=== PATIENT | male | born 1955 | race Caucasian/White ===

== ENCOUNTER 2017-05-13 09:28 | Observation (INO) ==
[2017-05-13] MEDS ORDERED: cefTRIAXone 1,000 MG in Water for inj. (sterile) 10 ML IVP ONE (09:42)
[2017-05-13] MEDS ORDERED: methylPREDNISolone 125 MG/2 ML VIAL IVP ONE (09:42)
[2017-05-13] MEDS ORDERED: Levalbuterol Neb 1.25 MG/3 ML IH ONE (09:44)
--- NOTE | 2017-05-13 09:48 | Emergency Department Note ---
Disposition Clinical Impression: Acute exacerbation of chronic obstructive airways disease Disposition: Admitted As Inpatient Condition: Fair Referrals: Franklyn Chou MD [Primary Care Provider] - Forms: ED Satisfaction Letter SOB HPI - General Chief Complaint: ED Shortness of Breath/Dyspnea Stated Complaint: breathing problem Time Seen by Provider: 05/13/17 09:34 Source: patient, family Mode of arrival: private vehicle Limitations: no limitations Nursing Notes Reviewed: Yes Vital Signs Reviewed: Yes - History of Present Illness 61-year-old male presents for evaluation shortness of breath. Patient states over the last 3 days he has had sinus congestion and nonproductive cough. He has been using his oxygen on a continuous basis which he normally only uses on an as-needed basis. Patient has known history of COPD and uses nebulizers and oxygen on an as-needed basis at home. He does not require BiPAP or CPAP. He has never had endotracheal intubation. Patient states no chest pain. He denies any nausea vomiting. He states the leg swelling. - Related Data Home Medications Medication Instructions Recorded Confirmed Ipratropium/Albuterol Sulfate 1 puff IH QID 07/23/15 05/13/17 [Combivent Respimat Inhal [place]] Losartan Potassium [Cozaar] 50 mg PO DAILY 07/23/15 05/13/17 Budesonide/Formoterol 160/4.5 2 puff IH BIDR 01/20/17 05/13/17 [Symbicort 160/4.5] Folic Acid 1 mg PO DAILY 01/20/17 05/13/17 Pravastatin Sodium [Pravachol] 40 mg PO QPM 01/20/17 05/13/17 Fluticasone Propionate Nasal 50 mcg NS DAILY PRN 03/11/17 05/13/17 [Flonase] Ibuprofen 400 mg PO Q8H PRN 03/11/17 05/13/17 Ipratropium/Albuterol Neb [Duoneb] 3 ml IH QID PRN 03/11/17 05/13/17 Loratadine [Claritin] 10 mg PO DAILY PRN 03/11/17 05/13/17 Methotrexate [Otrexup] 15 mg PO QWEEK 03/29/17 05/13/17 Previous Rx's Medication Instructions Recorded Nitroglycerin 0.4 mg SL Q5MIN PRN #20 tab.subl 07/25/15 Cyclobenzaprine [Flexeril] 10 mg PO TID PRN #30 tablet 03/14/17 Metoprolol [Lopressor] 12.5 mg PO BID #60 tablet 03/30/17 Allergies Allergy/AdvReac Type Severity Reaction Status Date / Time salmeterol Allergy Swelling Verified 03/28/17 12:55 of Lip/Tongue/Throat Sulfa (Sulfonamide Allergy Swelling Verified 03/28/17 12:55 Antibiotics) of Lip/Tongue/Throat Review of Systems: Constitutional: [Negative for fever and chills.] HENT: [Negative for congestion.] Eyes: [Negative for discharge.] Respiratory: See history of present illness Cardiovascular: [Negative for chest pain.] Gastrointestinal: [Negative for nausea, vomiting, abdominal pain and diarrhea.] Endocrine: [Negative for excessive thirst,urination] Genitourinary: [Negative for dysuria and frequency.] Musculoskeletal: [Negative for myalgias and arthralgias.] Skin: [Negative for rash.] Neurological: [Negative for dizziness, localized weakness and headaches.] Psychiatric/Behavioral: [Negative for nervous/anxious.] All other systems reviewed and are negative. Past Medical History - Past Medical History Attestation: Yes The following information was validated with the patient. Source: patient Medical history: Reports: arthritis, asthma, COPD, hyperlipidemia, hypertension , RA, other Surgical history: Reports: cholecystectomy, herniorrhaphy, other Psychiatric history: Reports: no psych history - Social History Smoking Status: Former smoker Smokeless Tobacco Status: No Alcohol use: Reports: none Drug use: Reports: none Physical Exam Constitutional: Patient is [alert], [healthy,and comfortable] and cooperative. . The patient appears mildly symptomatic, [nontoxic, and does not appear ill] . HENT: Head: Normocephalic and atraumatic. Right Ear: External ear normal. Left Ear: External ear normal. Nose: Nose normal. Mouth/Throat: Oropharynx is clear and mucous membranes show [good hydration.] Eyes: Conjunctivae and EOM are normal. Pupils are equal, round, and reactive to light. Right eye exhibits [no] discharge. Left eye exhibits [no] discharge. Neck: Trachea is midline, normal range of motion and [phonation normal]. Neck supple. Cardiovascular: [Regular rhythm], S1 normal, S2 normal, normal heart sounds and intact distal pulses. Exam reveals no gallop and no friction rub. No murmur heard. [Capillary refill is brisk.] [Peripheral pulses are 2+] Pulmonary/Chest: Effort increased No stridor. Mild tachypnea. [No] respiratory distress. There are decreased breath sounds. There are faint wheezes heard on expiration. No rhonchi. No rales. Abdominal: Soft. [Bowel sounds are normal]. There exhibits [no] distension and [no] mass. There is no hepatosplenomegaly. There is [no tenderness], [no] CVA tenderness. There is [no rigidity, no rebound, no guarding]. Musculoskeletal: Normal range of motion of uninvolved extremities. There exhibits mild peripheral edema. [ ] Neurological: Patient is alert. Patient displays no atrophy and no tremor. No cranial nerve deficit and exhibits normal muscle tone. Coordination normal grossly. Skin: Skin is warm and dry. No erythema. No rash noted. Psychiatric: Patient has a normal mood and affect. Course Course Narrative: Patient states after Xopenex I Medrol and Rocephin he feels improved. He still feels that he is short of breath. I discussed the case with Dr. Lam hospitalist and we will admit him for observation admission and around-the- clock breathing treatments. Admitting orders have been written at the convenience Dr. Lam. He will assume further care upon the patient's arrival to the floor. Vital Signs Temperature 100.6 F H 05/13/17 09:32 Pulse Rate 128 05/13/17 09:32 Respiratory Rate 26 05/13/17 09:32 Blood Pressure 132/94 05/13/17 09:32 O2 Sat by Pulse Oximetry 96 05/13/17 09:32 Temperature 100.6 F H 05/13/17 09:32 Pulse Rate 101 05/13/17 11:08 Respiratory Rate 26 05/13/17 09:32 Blood Pressure 119/67 05/13/17 11:08 O2 Sat by Pulse Oximetry 92 05/13/17 11:08 Oxygen Delivery Oxygen Delivery Nasal Cannula Shortness of Breath/Dyspnea - MDM Narrative Medical decision making narrative: PULMONARY EMBOLISM, PULMONARY EDEMA, PNEUMONIA, PNEUMOTHORAX, STATUS ASTHMATICUS , ACUTE RESPIRATORY FAILURE, PLEURAL EFFUSION, HEMOTHORAX, OR ACUTE CORONARY SYNDROME. - Lab Data Lab results reviewed: Yes I reviewed the patient's lab results. Result diagrams: 05/13/17 10:22 05/13/17 10:22 Lab Results 05/13/17 05/13/17 05/13/17 Range/Units 10:22 10:22 10:22 WBC 9.0 (4.3-11.1) K/mcL RBC 4.49 (4.19-5.50) M/mcL Hgb 14.5 (12.9-16.9) g/dL Hct 43.4 (37.5-50.1) % MCV 96.7 (83.0-100.0) fL MCH 32.3 (28.0-33.3) pg MCHC 33.4 (31.6-35.5) g/dL RDW 13.5 (11.5-14.5) % Plt Count 235 (140-400) K/mcL MPV 10.0 (9.4-12.4) fL Immature Gran % 0.4 (0-4) % Seg Neutrophils % 83.0 % Lymphocytes % 5.8 % Monocytes % 9.6 % Eosinophils % 0.9 % Basophils % 0.3 % Neutrophils # 7.5 (1.6-8.9) K/mcL Lymphocytes # 0.5 L (0.6-4.6) K/mcL Monocytes # 0.9 (0.0-1.3) K/mcL Eosinophils # 0.1 (0.0-0.6) K/mcL Basophils # 0.0 (0.0-0.2) K/mcL PT (9.4-12.1) Seconds INR APTT (26.0-36.0) Seconds Sodium 137 (136-145) mEq/L Potassium 4.4 (3.5-4.5) mEq/L Chloride 104 (98-109) mEq/L Carbon Dioxide 24 (19-29) mEq/L BUN 17 (8-26) mg/dL Creatinine 0.85 (0.72-1.25) mg/dL Est GFR ( Amer) > 60 (> 60) Est GFR (Non-Af Amer) > 60 (> 60) BUN/Creatinine Ratio 20 (6-26) Glucose 101 H (70-99) mg/dL Calculated Osmolality 286 (280-300) Lactic Acid 1.8 (0.5-2.2) mmol/L Calcium 9.2 (8.6-10.8) mg/dL Total Bilirubin 0.6 (0.2-1.2) mg/dL Direct Bilirubin 0.3 (0.0-0.5) mg/dL Indirect Bilirubin 0.3 (0.0-1.2) mg/dL AST 33 (5-34) Units/L ALT 36 (0-55) Units/L Alkaline Phosphatase 136 H (38-126) Units/L Troponin I (0-0.03) ng/mL B-Natriuretic Peptide (0-100) pg/mL Serum Total Protein 6.8 (6.0-8.3) g/dL Albumin 3.1 L (3.5-5.0) g/dL Globulin 3.7 H (2.4-3.5) g/dL Albumin/Globulin Ratio 0.8 L (1.1-2.2) 05/13/17 05/13/17 05/13/17 Range/Units 10:22 10:22 10:22 WBC (4.3-11.1) K/mcL RBC (4.19-5.50) M/mcL Hgb (12.9-16.9) g/dL Hct (37.5-50.1) % MCV (83.0-100.0) fL MCH (28.0-33.3) pg MCHC (31.6-35.5) g/dL RDW (11.5-14.5) % Plt Count (140-400) K/mcL MPV (9.4-12.4) fL Immature Gran % (0-4) % Seg Neutrophils % % Lymphocytes % % Monocytes % % Eosinophils % % Basophils % % Neutrophils # (1.6-8.9) K/mcL Lymphocytes # (0.6-4.6) K/mcL Monocytes # (0.0-1.3) K/mcL Eosinophils # (0.0-0.6) K/mcL Basophils # (0.0-0.2) K/mcL PT 11.4 (9.4-12.1) Seconds INR 1.1 APTT 25.5 L (26.0-36.0) Seconds Sodium (136-145) mEq/L Potassium (3.5-4.5) mEq/L Chloride (98-109) mEq/L Carbon Dioxide (19-29) mEq/L BUN (8-26) mg/dL Creatinine (0.72-1.25) mg/dL Est GFR ( Amer) (> 60) Est GFR (Non-Af Amer) (> 60) BUN/Creatinine Ratio (6-26) Glucose (70-99) mg/dL Calculated Osmolality (280-300) Lactic Acid (0.5-2.2) mmol/L Calcium (8.6-10.8) mg/dL Total Bilirubin (0.2-1.2) mg/dL Direct Bilirubin (0.0-0.5) mg/dL Indirect Bilirubin (0.0-1.2) mg/dL AST (5-34) Units/L ALT (0-55) Units/L Alkaline Phosphatase (38-126) Units/L Troponin I 0.01 (0-0.03) ng/mL B-Natriuretic Peptide 26 (0-100) pg/mL Serum Total Protein (6.0-8.3) g/dL Albumin (3.5-5.0) g/dL Globulin (2.4-3.5) g/dL Albumin/Globulin Ratio (1.1-2.2) - Radiology Data Radiology results reviewed: Yes I reviewed the patient's radiology results. XR/XR chest 1V portable IMPRESSION: Emphysema with no acute abnormality - EKG Data EKG attestation: Yes I reviewed and interpreted this EKG. EKG results narrative: I have contemporaneously read the EKG which has the following findings: Rhythm normal sinus Rate 109 [place] normal Ectopy none Impression normal sinus rhythm with right bundle branch block and nonspecific ST segment T-wave changes
[2017-05-13 10:31] LABS: Basophils % 0.3 %; Eosinophils # 0.1 K/mcL (0.0-0.6); Eosinophils % 0.9 %; Hematocrit 43.4 % (37.5-50.1); Hemoglobin 14.5 g/dL (12.9-16.9); Immature Granulocytes % 0.4 % (0-4); Lymphocytes # 0.5 K/mcL (0.6-4.6); Lymphocytes % 5.8 %; Mean Corpuscular HGB Conc 33.4 g/dL (31.6-35.5); Mean Corpuscular Hemoglobin 32.3 pg (28.0-33.3); Mean Corpuscular Volume 96.7 fL (83.0-100.0); Monocytes # 0.9 K/mcL (0.0-1.3); Monocytes % 9.6 %; Neutrophils # 7.5 K/mcL (1.6-8.9); Platelet Count 235 K/mcL (140-400); Red Blood Count 4.49 M/mcL (4.19-5.50); Red Cell Distribution Width 13.5 % (11.5-14.5)
[2017-05-13 10:38] LABS: INR 1.1; Prothrombin Time 11.4 Seconds (9.4-12.1)
[2017-05-13 10:41] LABS: Activated Partial Thrombo Time 25.5 Seconds (26.0-36.0)
[2017-05-13 10:46] LABS: Alanine Aminotransferase 36 Units/L (0-55); Albumin 3.1 g/dL (3.5-5.0); Albumin/Globulin Ratio 0.8 (1.1-2.2); Alkaline Phosphatase 136 Units/L (38-126); Aspartate Amino Transferase 33 Units/L (5-34); BUN/Creatinine Ratio 20 (6-26); Bilirubin,Direct 0.3 mg/dL (0.0-0.5); Bilirubin,Indirect 0.3 mg/dL (0.0-1.2); Bilirubin,Total 0.6 mg/dL (0.2-1.2); Blood Urea Nitrogen 17 mg/dL (8-26); Calcium 9.2 mg/dL (8.6-10.8); Carbon Dioxide 24 mEq/L (19-29); Chloride 104 mEq/L (98-109); Globulin 3.7 g/dL (2.4-3.5); Glucose 101 mg/dL (70-99); Osmolality,Calculated 286 (280-300); Potassium 4.4 mEq/L (3.5-4.5); Sodium 137 mEq/L (136-145); Total Protein 6.8 g/dL (6.0-8.3); eGFR For African Americans > 60 (> 60); eGFR For Non-African Americans > 60 (> 60)
[2017-05-13] MEDS ORDERED: MOM Conc 10 ML UD.LIQ PO PRN (11:27)
[2017-05-13] MEDS ORDERED: Acetaminophen 325 MG TABLET PO PRN (11:27)
[2017-05-13] MEDS ORDERED: Naloxone 0.4 MG/ML INJ IVP PRN (11:27)
[2017-05-13] MEDS ORDERED: Ibuprofen 400 MG TABLET PO PRN (11:27)
[2017-05-13] MEDS ORDERED: Ondansetron 4 MG/2 ML VIAL IVP PRN (11:27)
[2017-05-13] MEDS ORDERED: Nitroglycerin 0.4 MG TAB.SUBL SL PRN (11:27)
[2017-05-13] MEDS ORDERED: Azithromycin 500 MG in D5% in Water 250 ML IVPB SCH (14:00)
[2017-05-13] MEDS: Albuterol 2.5 MG/3 ML NEBULIZER IH SCH ×3 (14:22→21:39)
--- NOTE | 2017-05-13 14:31 | Internal Med History&Physical ---
Date of Encounter: 05/13/17 Time of Encounter: 14:29 Assessment and Plan (1) Chest pain made worse by breathing Current visit: Yes Status: Acute (2) Acute and chronic respiratory failure with hypoxia Current visit: Yes Status: Acute By history is had respiratory difficulty (3) COPD (chronic obstructive pulmonary disease) Current visit: No Status: Chronic Patient has COPD by history and his have an acute exacerbation it is probably superimposed by a viral URI Qualifiers: COPD type: unspecified COPD Qualified Code(s): J44.9 - Chronic obstructive pulmonary disease, unspecified Internal Medicine - H&P: HPI Chief complaint: Short of breath. Patient presented to emergency room increased shortness o Admitted From: Emergency Dept Plans for Post Hospital Care: Home History of present illness: Mr. Denis is a 61 year old male Patient presents emergency room shortness of breath coughing and was uncomfortable being discharged home. He does have home O2 that he uses when necessary states a feeling of regional underwater. Past Med Surg Social Fam HX - Past Medical History Medical history: arthritis, asthma, COPD, hyperlipidemia, hypertension, RA, other Psychiatric history: no psych history - Past Surgical History Surgical History: cholecystectomy, herniorrhaphy, other - Social History Smoking Status: Former smoker Smokeless Tobacco Status: No Alcohol use: none Drug use: none - Family History Mother Adopted: No Family Member Ethnicity: Non- Living Status: Hx Family Cancer: Yes Hx Family Endocrine Disorder: Yes (DM) Hx Family Musculoskeletal Disorders: Yes Hx Family Neurologic Disorders: Yes Father Adopted: No Family Member Ethnicity: Non- Living Status: Internal Medicine - H&P: Meds Ipratropium/Albuterol Sulfate [Combivent Respimat Inhal [place]] 1 puff IH QID [History] Losartan Potassium [Cozaar] 50 mg PO DAILY 07/23/15 [History] Nitroglycerin 0.4 mg SL Q5MIN PRN #20 tab.subl 07/25/15 [Rx] Budesonide/Formoterol 160/4.5 [Symbicort 160/4.5] 2 puff IH BIDR 01/20/17 [ History] Folic Acid 1 mg PO DAILY 01/20/17 [History] Pravastatin Sodium [Pravachol] 40 mg PO QPM 01/20/17 [History] Fluticasone Propionate Nasal [Flonase] 50 mcg NS DAILY PRN 03/11/17 [History] Ibuprofen 400 mg PO Q8H PRN 03/11/17 [History] Ipratropium/Albuterol Neb [Duoneb] 3 ml IH QID PRN 03/11/17 [History] Loratadine [Claritin] 10 mg PO DAILY PRN 03/11/17 [History] Cyclobenzaprine [Flexeril] 10 mg PO TID PRN #30 tablet 03/14/17 [Rx] Methotrexate [Otrexup] 15 mg PO QWEEK 03/29/17 [History] Metoprolol [Lopressor] 12.5 mg PO BID #60 tablet 03/30/17 [Rx] 3 Allergy/AdvReac Type Severity Reaction Status Date / Time salmeterol Allergy Swelling Verified 03/28/17 12:55 of Lip/Tongue/Throat Sulfa (Sulfonamide Allergy Swelling Verified 03/28/17 12:55 Antibiotics) of Lip/Tongue/Throat All Systems PM: A 10-system review of systems was performed and is negative for pertinent findings except as documented above in the HPI. - Constitutional Constitutional: fatigue, fever(s), no anorexia, no chills, no excessive sweating , no falls, no lethargy, no malaise, no night sweats, no weakness, no weight gain, no weight loss - EENT Eyes: no blurry vision, no change in vision, no decreased night vision, no diplopia, no discharge, no dry eye, no itchy eyes, no loss of peripheral vision , no loss of vision, no photophobia, no seeing flashes, no spots in vision, no tunnel vision, no other visual disturbances Ears: no decreased hearing, no ear discharge, no ear pain, no tinnitus Nose, mouth and throat: no bleeding gums, no change in voice, no dental pain, no dry mouth, no dysphagia, no epistaxis, no facial pain, no hoarseness, no lip swelling, no mouth lesions, no mouth pain, no nasal congestion, no nasal discharge, no nasal obstruction, no neck mass, no neck pain, no nose pain, no odynophagia, no post-nasal drip, no sinus pain, no sinus pressure, no sore throat, no throat swelling, no tongue swelling - Breasts Breasts: no change in shape, no pain, no nipple discharge, no skin changes, no swelling - Cardiovascular Cardiovascular ROS IM: no chest pain, no claudication, no diaphoresis, no dyspnea, no dyspnea on exertion, no edema, no irregular heart rhythm, no lightheadedness, no orthopnea, no palpitations, no paroxysmal nocturnal dyspnea , no syncope - Respiratory Respiratory: dyspnea on exertion, wheezing, chest congestion, excessive phlegm production, change in phlegm color, no cough, no dyspnea, no hemoptysis, no snoring, no stridor, no pain on inspiration, no pain with cough - Gastrointestinal Gastrointestinal: no abdominal pain, no belching, no bloating, no change in bowel habits, no coffee ground emesis, no constipation, no cramping, no diarrhea , no dyspepsia, no dysphagia, no early satiety, no excessive flatus, no fecal incontinence, no heartburn, no hematemesis, no hematochezia, no loose stools, no melena, no nausea, no odynophagia, no tenesmus, no vomiting, no other - Genitourinary Genitourinary ROS male: no difficulty urinating, no dysuria, no flank pain, no genital lesions, no genital pain, no hematuria, no nocturia, no post void dribbling, no scrotal swelling, no testicular mass, no testicular pain, no urinary frequency, no urinary hesitancy, no urinary incontinence, no urinary urgency, no other - Musculoskeletal Musculoskeletal ROS IM: no arthralgias, no atrophy, no back pain, no deformity, no muscle cramps, no muscle weakness, no myalgias, no neck pain, no numbness, no stiffness, no tingling - Integumentary Integumentary IM: no erythema, no new lesions, no non-healing lesions, no pruritus, no rash, no skin ulcer, no sores, no unusual bruising, no jaundice - Neurological Neurological ROS: no abnormal gait, no abnormal hearing, no abnormal movements, no abnormal speech, no burning sensations, no confusion, no disequilibrium, no loss of vision, no memory loss, no numbness, no paresthesias, no radicular pain , no restless legs, no tingling, no tremor(s), no vertigo - Psychiatric Psychiatric: no abnormal sleep pattern, no anhedonia, no auditory hallucinations , no behavioral changes, no change in appetite, no confusion, no depression, no difficulty concentrating, no hallucinations, no homicidal ideation, no hopelessness, no irritability, no memory loss, no mood swings, no panic attacks , no paranoia, no suicidal ideation, no visual hallucinations, no tactile - Endocrine Endocrine IM: no cold intolerance, no deeping of the voice, no excessive sweating, no fatigue, no flushing, no heat intolerance, no polydipsia, no polyphagia, no polyuria - Hematologic/Lymphatic Hematologic/Lymphatic: no easy bleeding, no easy bruising, no lymphadenopathy - Allergic/Immunologic Allergic/Immunologic: wheezing, no tongue swelling, no throat swelling, no itchy eyes, no seasonal rhinorrhea, no GI upset with certain foods, no lip swelling - Constitutional Vitals: Temp Pulse Resp BP Pulse Ox 98.3 F 102 20 121/65 95 05/13/17 12:17 05/13/17 12:17 05/13/17 12:17 05/13/17 12:17 05/13/17 12:17 General appearance: Present: A&O X 3, pleasant, answers questions appropriately - Head Head exam: Present: atraumatic, normal inspection, normocephalic - Neck Neck exam general surgery: Present: supple, trachea midline. Absent: lymphadenopathy - Respiratory Respiratory exam: Present: CTAB. Absent: accessory muscle use, rales, rhonchi, wheezes - Cardiovascular Cardiovascular exam: Present: RRR, +S1, +S2. Absent: diastolic murmur, gallop, rubs, systolic murmur - GI/Abdominal GI/Abdominal exam: Present: normal bowel sounds, soft, no peritoneal signs. Absent: distended, tenderness Internal Med - H&P Results - Labs CBC & Chem 7: 05/13/17 10:22 05/13/17 10:22 Labs: Lab state - VTE Reasons for not Prescribing Prophylaxis: Treatment not Indicated - Low risk for VTE
[2017-05-13] MEDS ORDERED: Ipratropium/Albuterol Neb 3 ML IH ONE (15:00)
[2017-05-13] MEDS: methylPREDNISolone 125 MG/2 ML VIAL IVP SCH ×2 (15:41→23:50)
[2017-05-13] MEDS: Budesonide/Formoterol 160/4.5 MDI IH SCH ×2 (21:38→22:11)
[2017-05-14] MEDS: Albuterol 2.5 MG/3 ML NEBULIZER IH SCH ×3 (01:17→08:58)
[2017-05-14] MEDS ORDERED: Loratadine 10 MG TABLET PO PRN (08:00)
[2017-05-14] MEDS ORDERED: Fluticasone Propionate Nasal 50 MCG/SPRAY BOTTLE NS PRN (08:00)
[2017-05-14] MEDS: Budesonide/Formoterol 160/4.5 MDI IH SCH (09:04)
[2017-05-14] MEDS: Folic Acid 1 MG TABLET PO SCH ×2 (09:20→09:21)
[2017-05-14] MEDS: methylPREDNISolone 125 MG/2 ML VIAL IVP SCH (09:20)
[2017-05-14 11:43] VITALS: BP 113/69
--- NOTE | 2017-05-14 12:06 | Discharge Summary ---
Date of Encounter: 05/14/17 Time of Encounter: 12:04 - Discharge Diagnosis (1) Chest pain made worse by breathing Priority: Primary Status: Acute (2) Acute and chronic respiratory failure with hypoxia Priority: Primary Status: Acute (3) COPD (chronic obstructive pulmonary disease) Priority: Primary Status: Chronic Qualifiers: COPD type: unspecified COPD Qualified Code(s): J44.9 - Chronic obstructive pulmonary disease, unspecified - Discharge Medications Home Medications: Ipratropium/Albuterol Sulfate [Combivent Respimat Inhal [place]] 1 puff IH QID [History] Losartan Potassium [Cozaar] 50 mg PO DAILY 07/23/15 [History] Nitroglycerin 0.4 mg SL Q5MIN PRN #20 tab.subl 07/25/15 [Rx] Budesonide/Formoterol 160/4.5 [Symbicort 160/4.5] 2 puff IH BIDR 01/20/17 [ History] Folic Acid 1 mg PO DAILY 01/20/17 [History] Pravastatin Sodium [Pravachol] 40 mg PO QPM 01/20/17 [History] Fluticasone Propionate Nasal [Flonase] 50 mcg NS DAILY PRN 03/11/17 [History] Ibuprofen 400 mg PO Q8H PRN 03/11/17 [History] Ipratropium/Albuterol Neb [Duoneb] 3 ml IH QID PRN 03/11/17 [History] Loratadine [Claritin] 10 mg PO DAILY PRN 03/11/17 [History] Cyclobenzaprine [Flexeril] 10 mg PO TID PRN #30 tablet 03/14/17 [Rx] Methotrexate [Otrexup] 15 mg PO QWEEK 03/29/17 [History] Metoprolol [Lopressor] 12.5 mg PO BID #60 tablet 03/30/17 [Rx] Allergies/Adverse Reactions: 3 Allergy/AdvReac Type Severity Reaction Status Date / Time salmeterol Allergy Swelling Verified 03/28/17 12:55 of Lip/Tongue/Throat Sulfa (Sulfonamide Allergy Swelling Verified 03/28/17 12:55 Antibiotics) of Lip/Tongue/Throat Date of admission: 05/13/17 11:50 Primary care physician: Franklyn Chou, Discharging clinician: Vic Lam Anticipated date of discharge: 05/14/17 - Patient Status Disposition: Home, Self-Care Condition: Good Overall status at discharge: patient is progressing back to baseline - Discharge Instructions Follow Up With: Franklyn Chou MD [Primary Care Provider] - - Diet and Activity Activity: resume usual activities as tolerated Diet: advance to your usual diet Interval History: Patient stated he been short of breath the last 3 days. He has home O2 that he uses when necessary but has been using it continuously. He had some cough he said occasional yellow sputum. And was concerned about going home. He was admitted to observation he is much improve there is no wheezing and he will be discharged today Hospital course: Mr. Denis is a 61 year old male - Time Spent with Patient Total time spent providing and/or coordinating discharge services: Less than 30 minutes - Constitutional Vitals: Temp Pulse Resp BP Pulse Ox 98.6 F 69 18 113/69 96 05/14/17 11:40 05/14/17 11:40 05/14/17 11:40 05/14/17 11:40 05/14/17 11:40 General appearance: Present: A&O X 3, pleasant, answers questions appropriately - Head Head exam: Present: atraumatic, normal inspection, normocephalic - Neck Neck exam general surgery: Present: supple, trachea midline. Absent: lymphadenopathy - Respiratory Respiratory exam: Present: decreased breath sounds, CTAB, prolonged expiratory phase. Absent: accessory muscle use, rales, rhonchi, wheezes - Cardiovascular Cardiovascular exam: Present: RRR, +S1, +S2. Absent: diastolic murmur, gallop, rubs, systolic murmur - VTE Reasons for not Prescribing Prophylaxis: Treatment not Indicated - Low risk for VTE
--- NOTE | 2017-05-14 19:58 | Electrocardiograph Report ---
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
== END 2017-05-14 13:45 | disposition home or self-care (01) ==
LOC: EMEROOGRE 09:28 → INPGRE 09:28
PROVIDERS: ADMIT Internal Medicine; ATTEND Internal Medicine

== ENCOUNTER 2017-10-09 15:56 | Inpatient (IN) ==
[2017-10-09] MEDS ORDERED: 0.9 % Sodium Chloride 1,000 ML ONE ×2 (16:02→18:14)
[2017-10-09] MEDS ORDERED: 0.9 % Sodium Chloride 1,000 ML IVC ONE ×2 (16:12→17:03)
[2017-10-09] MEDS ORDERED: Ipratropium/Albuterol Neb 3 ML IH ONE (16:12)
--- NOTE | 2017-10-09 16:17 | Emergency Department Note ---
Disposition Clinical Impression: Pneumonia Qualifiers: Pneumonia type: due to unspecified organism Laterality: left Lung location: lower lobe of lung Qualified Code(s): J18.1 - Lobar pneumonia, unspecified organism Degenerative joint disease (DJD) of lumbar spine Qualifiers: Spinal osteoarthritis complication: with radiculopathy Qualified Code(s): M47.26 - Other spondylosis with radiculopathy, lumbar region Disposition: Admitted As Inpatient Condition: Fair Referrals: Franklyn Chou MD [Primary Care Provider] - Forms: ED Satisfaction Letter SOB HPI - General Chief Complaint: ED Shortness of Breath/Dyspnea Stated Complaint: fever, shortness of breath Time Seen by Provider: 10/09/17 15:59 Source: patient Mode of arrival: private vehicle Limitations: no limitations Nursing Notes Reviewed: Yes Vital Signs Reviewed: Yes - History of Present Illness 62-year-old male presents for evaluation of shortness of breath and fever. Patient was diagnosed with influenza 3 days ago. Since that time he has continued to feel short of breath and running fever. He also states that his urine starting to burn. He has been poorly and drinking poorly. He states no chest pain. He states his cough is relatively nonproductive. He has a known history of COPD which he normally requires oxygen, on an as-needed basis. He however over the last 3 days has been using oxygen continuously. He denies any abdominal pain. He has no history of cardiac disease. Patient also had a fall yesterday in his been having some radicular pain down his right leg. - Related Data Home Medications Medication Instructions Recorded Confirmed Ipratropium/Albuterol Sulfate 1 puff IH QID 07/23/15 07/21/17 [Combivent Respimat Inhal [place]] Losartan Potassium [Cozaar] 50 mg PO DAILY 07/23/15 07/21/17 Folic Acid 1 mg PO DAILY 01/20/17 07/21/17 Pravastatin Sodium [Pravachol] 40 mg PO QPM 01/20/17 07/21/17 Fluticasone Propionate Nasal 50 mcg NS DAILY PRN 03/11/17 07/21/17 [Flonase] Ibuprofen 400 mg PO Q8H PRN 03/11/17 07/21/17 Ipratropium/Albuterol Neb [Duoneb] 3 ml IH QID PRN 03/11/17 07/21/17 Loratadine [Claritin] 10 mg PO DAILY PRN 03/11/17 07/21/17 Albuterol Sulfate [Albuterol 1 - 2 puff IH Q6H PRN 05/18/17 07/21/17 Inhaler] Potassium Chloride [K-Tab ER] 20 meq PO DAILY 05/18/17 07/21/17 Tiotropium [place] [Spiriva 2 puff IH DAILY 05/18/17 07/21/17 Respimat] Previous Rx's Medication Instructions Recorded Nitroglycerin 0.4 mg SL Q5MIN PRN #20 tab.subl 07/25/15 Cyclobenzaprine [Flexeril] 10 mg PO TID PRN #30 tablet 03/14/17 Metoprolol [Lopressor] 12.5 mg PO BID #60 tablet 03/30/17 Methotrexate [Otrexup] 15 mg PO QWEEK #0 05/20/17 Ondansetron ODT [Zofran ODT] 4 mg SL Q6HR #12 tab.rapdis 07/21/17 levoFLOXacin [Levaquin] 750 mg PO DAILY #9 tablet 07/21/17 Ondansetron ODT [Zofran ODT] 4 mg SL Q8HR PRN #6 tab.rapdis 10/06/17 Oseltamivir [Tamiflu] 75 mg PO BID #9 capsule 10/06/17 Allergies Allergy/AdvReac Type Severity Reaction Status Date / Time salmeterol Allergy Swelling Verified 07/21/17 05:57 of Lip/Tongue/Throat Sulfa (Sulfonamide Allergy Swelling Verified 07/21/17 05:57 Antibiotics) of Lip/Tongue/Throat Review of Systems: Constitutional: See history of present illness HENT: [Negative for congestion.] Eyes: [Negative for discharge.] Respiratory: see history of present illness Cardiovascular: [Negative for chest pain.] Gastrointestinal: [Negative for nausea, vomiting, abdominal pain and diarrhea.] Endocrine: [Negative for excessive thirst,urination] Genitourinary: [Negative for dysuria and frequency.] Musculoskeletal: [Negative for myalgias and arthralgias.] Skin: [Negative for rash.] Neurological: [Negative for dizziness, localized weakness and headaches.] Psychiatric/Behavioral: [Negative for nervous/anxious.] All other systems reviewed and are negative. Past Medical History - Past Medical History Attestation: Yes The following information was validated with the patient. Source: patient, obtained from family () Medical history: Reports: arthritis, asthma, COPD, hyperlipidemia, hypertension , RA, other Surgical history: Reports: cholecystectomy, herniorrhaphy, other Psychiatric history: Reports: no psych history - Social History Smoking Status: Former smoker Smokeless Tobacco Status: No Alcohol use: Reports: none Drug use: Reports: none Physical Exam Constitutional: Patient is [alert], obese, mildly tachypneic, and cooperative. . The patient appears , nontoxic but appears mildly ill. HENT: Head: Normocephalic and atraumatic. Right Ear: External ear normal. Left Ear: External ear normal. Nose: Nose normal. Mouth/Throat: Oropharynx is clear and mucous membranes show mild to moderate dehydration Eyes: Conjunctivae and EOM are normal. Pupils are equal, round, and reactive to light. Right eye exhibits [no] discharge. Left eye exhibits [no] discharge. Neck: Trachea is midline, normal range of motion and [phonation normal]. Neck supple. Cardiovascular: [Regular rhythm], S1 normal, S2 normal, normal heart sounds and intact distal pulses. Exam reveals no gallop and no friction rub. No murmur heard. [Capillary refill is brisk.] [Peripheral pulses are 2+] Pulmonary/Chest: Effort increased No stridor. Mild tachypnea. [No] respiratory distress. There are decreased breath sounds. Breath sounds remain significantly reduced it is difficult to hear but there are a few wheezes with no rales or rhonchi Abdominal: Soft. [Bowel sounds are normal]. There exhibits [no] distension and [no] mass. There is no hepatosplenomegaly. There is [no tenderness], [no] CVA tenderness. There is [no rigidity, no rebound, no guarding]. Musculoskeletal: Normal range of motion of uninvolved extremities. There exhibits [no edema]. [ ] Neurological: Patient is alert. Patient displays no atrophy and no tremor. No cranial nerve deficit and exhibits normal muscle tone. Coordination normal grossly. Skin: Skin is warm and dry. No erythema. No rash noted. Psychiatric: Patient has a normal mood and affect. Course Course Narrative: Patient has shown some improvement after albuterol treatment. Chest x-ray shows new developing pulmonary infiltrates consistent with a new pneumonia. Discussed the case with Dr. Richardson who states that the patient is seen by Dr. Jane Negrete, therefore is a hospitalist admission. Patient was discussed with Dr. Lam, hospitalist, who will accept the patient Vital Signs Temperature 104.1 F H 10/09/17 15:57 Pulse Rate 125 10/09/17 15:57 Respiratory Rate 24 10/09/17 15:57 Blood Pressure 136/89 10/09/17 15:57 O2 Sat by Pulse Oximetry 88 10/09/17 15:57 Temperature 99.1 F 10/09/17 17:47 Pulse Rate 110 10/09/17 17:47 Respiratory Rate 22 10/09/17 17:47 Blood Pressure 117/85 10/09/17 17:47 O2 Sat by Pulse Oximetry 98 10/09/17 17:47 Oxygen Delivery Oxygen Delivery Nasal Cannula Shortness of Breath/Dyspnea - MDM Narrative Medical decision making narrative: Differential diagnosis includes INFLUENZA, UPPER RESPIRATORY INFECTION, PHARYNIGITIS, BRONCHITIS,TONSILLITIS, MASTOIDITIS, PNEUMONIA, PERITONSILLAR ABSCESS, CROUP, SINUSITIS MALIGNANT OTITIS EXTERNA, OTITIS MEDIA OR EPIGLOTTITIS. - Lab Data Lab results reviewed: Yes I reviewed the patient's lab results. Result diagrams: 10/09/17 16:12 10/09/17 16:25 Lab Results 10/09/17 10/09/17 10/09/17 Range/Units 16:12 16:12 16:12 WBC 15.1 H (4.3-11.1) K/mcL RBC 4.56 (4.19-5.50) M/mcL Hgb 14.9 (12.9-16.9) g/dL Hct 43.5 (37.5-50.1) % MCV 95.4 (83.0-100.0) fL MCH 32.7 (28.0-33.3) pg MCHC 34.3 (31.6-35.5) g/dL RDW 13.9 (11.5-14.5) % Plt Count 266 (140-400) K/mcL MPV 11.4 (9.4-12.4) fL Immature Gran % 0.8 (0-4) % Seg Neutrophils % 83.9 % Lymphocytes % 4.4 % Monocytes % 9.9 % Eosinophils % 0.7 % Basophils % 0.3 % Neutrophils # 12.7 H (1.6-8.9) K/mcL Lymphocytes # 0.7 (0.6-4.6) K/mcL Monocytes # 1.5 H (0.0-1.3) K/mcL Eosinophils # 0.1 (0.0-0.6) K/mcL Basophils # 0.1 (0.0-0.2) K/mcL PT 14.2 H (9.4-12.1) Seconds INR 1.3 APTT 29.1 (26.0-36.0) Seconds Sodium (136-145) mEq/L Potassium (3.5-5.1) mEq/L Chloride (98-107) mEq/L Carbon Dioxide (23-29) mEq/L BUN (8-23) mg/dL Creatinine (0.70-1.30) mg/dL Est GFR ( Amer) (> 60) Est GFR (Non-Af Amer) (> 60) BUN/Creatinine Ratio (6-26) Glucose (70-105) mg/dL Calculated Osmolality (280-300) Lactic Acid (0.5-2.2) mmol/L Calcium (8.6-10.3) mg/dL Total Bilirubin (0.3-1.0) mg/dL AST (13-39) Units/L ALT (7-52) Units/L Alkaline Phosphatase (34-104) Units/L Troponin I (< 0.04) ng/mL B-Natriuretic Peptide (Less than 100) pg/mL Serum Total Protein (6.4-8.9) g/dL Albumin (3.5-5.7) g/dL Globulin (2.4-3.5) g/dL Albumin/Globulin Ratio (1.1-2.2) Urine Color [place] A (Yellow) Urine Clarity Clear (Clear) Urine pH 5.0 (5.0-8.0) pH Units Ur Specific [place] 1.020 (1.010-1.025) Urine Protein 30 H (Neg-Trace) mg/dL Urine Glucose (UA) Normal (Normal) mg/dL Urine Ketones Negative (Negative) mg/dL Urine Blood Trace-intact H (Negative) Urine Nitrite Negative (Negative) Urine Bilirubin Small H (Negative) Urine Urobilinogen 4.0 H (Normal) mg/dL Ur Leukocyte Esterase Negative (Negative) Urine Microscopic RBC 0-3 (0-3) per hpf Urine Microscopic WBC 0-3 (0-3) per hpf Ur Squamous Epith Cells Many H (None-Few) per lpf Urine Bacteria Many H (None-Few) per hpf Urine Mucus Few (Few) Ur Culture Indicated? NO (NO) 10/09/17 10/09/17 10/09/17 Range/Units 16:12 16:12 16:12 WBC (4.3-11.1) K/mcL RBC (4.19-5.50) M/mcL Hgb (12.9-16.9) g/dL Hct (37.5-50.1) % MCV (83.0-100.0) fL MCH (28.0-33.3) pg MCHC (31.6-35.5) g/dL RDW (11.5-14.5) % Plt Count (140-400) K/mcL MPV (9.4-12.4) fL Immature Gran % (0-4) % Seg Neutrophils % % Lymphocytes % % Monocytes % % Eosinophils % % Basophils % % Neutrophils # (1.6-8.9) K/mcL Lymphocytes # (0.6-4.6) K/mcL Monocytes # (0.0-1.3) K/mcL Eosinophils # (0.0-0.6) K/mcL Basophils # (0.0-0.2) K/mcL PT (9.4-12.1) Seconds INR APTT (26.0-36.0) Seconds Sodium (136-145) mEq/L Potassium (3.5-5.1) mEq/L Chloride (98-107) mEq/L Carbon Dioxide (23-29) mEq/L BUN (8-23) mg/dL Creatinine (0.70-1.30) mg/dL Est GFR ( Amer) (> 60) Est GFR (Non-Af Amer) (> 60) BUN/Creatinine Ratio (6-26) Glucose (70-105) mg/dL Calculated Osmolality (280-300) Lactic Acid 1.6 (0.5-2.2) mmol/L Calcium (8.6-10.3) mg/dL Total Bilirubin (0.3-1.0) mg/dL AST (13-39) Units/L ALT (7-52) Units/L Alkaline Phosphatase (34-104) Units/L Troponin I < 0.03 (< 0.04) ng/mL B-Natriuretic Peptide 109 H (Less than 100) pg/mL Serum Total Protein (6.4-8.9) g/dL Albumin (3.5-5.7) g/dL Globulin (2.4-3.5) g/dL Albumin/Globulin Ratio (1.1-2.2) Urine Color (Yellow) Urine Clarity (Clear) Urine pH (5.0-8.0) pH Units Ur Specific [place] (1.010-1.025) Urine Protein (Neg-Trace) mg/dL Urine Glucose (UA) (Normal) mg/dL Urine Ketones (Negative) mg/dL Urine Blood (Negative) Urine Nitrite (Negative) Urine Bilirubin (Negative) Urine Urobilinogen (Normal) mg/dL Ur Leukocyte Esterase (Negative) Urine Microscopic RBC (0-3) per hpf Urine Microscopic WBC (0-3) per hpf Ur Squamous Epith Cells (None-Few) per lpf Urine Bacteria (None-Few) per hpf Urine Mucus (Few) Ur Culture Indicated? (NO) 10/09/17 Range/Units 16:25 WBC (4.3-11.1) K/mcL RBC (4.19-5.50) M/mcL Hgb (12.9-16.9) g/dL Hct (37.5-50.1) % MCV (83.0-100.0) fL MCH (28.0-33.3) pg MCHC (31.6-35.5) g/dL RDW (11.5-14.5) % Plt Count (140-400) K/mcL MPV (9.4-12.4) fL Immature Gran % (0-4) % Seg Neutrophils % % Lymphocytes % % Monocytes % % Eosinophils % % Basophils % % Neutrophils # (1.6-8.9) K/mcL Lymphocytes # (0.6-4.6) K/mcL Monocytes # (0.0-1.3) K/mcL Eosinophils # (0.0-0.6) K/mcL Basophils # (0.0-0.2) K/mcL PT (9.4-12.1) Seconds INR APTT (26.0-36.0) Seconds Sodium 134 L (136-145) mEq/L Potassium 4.0 (3.5-5.1) mEq/L Chloride 100 (98-107) mEq/L Carbon Dioxide 25 (23-29) mEq/L BUN 23 (8-23) mg/dL Creatinine 0.95 (0.70-1.30) mg/dL Est GFR ( Amer) > 60 (> 60) Est GFR (Non-Af Amer) > 60 (> 60) BUN/Creatinine Ratio 24 (6-26) Glucose 105 (70-105) mg/dL Calculated Osmolality 282 (280-300) Lactic Acid (0.5-2.2) mmol/L Calcium 9.2 (8.6-10.3) mg/dL Total Bilirubin 1.4 H (0.3-1.0) mg/dL AST 12 L (13-39) Units/L ALT 12 (7-52) Units/L Alkaline Phosphatase 158 H (34-104) Units/L Troponin I (< 0.04) ng/mL B-Natriuretic Peptide (Less than 100) pg/mL Serum Total Protein 6.5 (6.4-8.9) g/dL Albumin 3.4 L (3.5-5.7) g/dL Globulin 3.1 (2.4-3.5) g/dL Albumin/Globulin Ratio 1.1 (1.1-2.2) Urine Color (Yellow) Urine Clarity (Clear) Urine pH (5.0-8.0) pH Units Ur Specific [place] (1.010-1.025) Urine Protein (Neg-Trace) mg/dL Urine Glucose (UA) (Normal) mg/dL Urine Ketones (Negative) mg/dL Urine Blood (Negative) Urine Nitrite (Negative) Urine Bilirubin (Negative) Urine Urobilinogen (Normal) mg/dL Ur Leukocyte Esterase (Negative) Urine Microscopic RBC (0-3) per hpf Urine Microscopic WBC (0-3) per hpf Ur Squamous Epith Cells (None-Few) per lpf Urine Bacteria (None-Few) per hpf Urine Mucus (Few) Ur Culture Indicated? (NO) - Radiology Data Radiology results reviewed: Yes I reviewed the patient's radiology results. XR/XR chest 1V portable IMPRESSION: 1. Increased multifocal left pulmonary opacities consistent with worsening pneumonia. Radiographic follow-up to resolution is recommended. 2. Severe emphysema. XR/XR lumbar spine 2-3V IMPRESSION: 1. No acute osseous abnormality of the lumbar spine. 2. Multilevel [id number] spondylosis most pronounced at L3-4 and L5-S1. 3. [id number] L4-5 and L5-S1 facet arthrosis - EKG Data EKG attestation: Yes I reviewed and interpreted this EKG. EKG shows normal: Reports: sinus rhythm Rate: Reports: tachycardia [place]/QRS: Reports: right axis deviation, RBBB (incomplete) Interpretation: Reports: nonspecific ST-T wave changes
[2017-10-09 16:28] LABS: Basophils # 0.1 K/mcL (0.0-0.2); Basophils % 0.3 %; Eosinophils # 0.1 K/mcL (0.0-0.6); Eosinophils % 0.7 %; Hematocrit 43.5 % (37.5-50.1); Hemoglobin 14.9 g/dL (12.9-16.9); Immature Granulocytes % 0.8 % (0-4); Lymphocytes # 0.7 K/mcL (0.6-4.6); Lymphocytes % 4.4 %; Mean Corpuscular HGB Conc 34.3 g/dL (31.6-35.5); Mean Corpuscular Hemoglobin 32.7 pg (28.0-33.3); Mean Corpuscular Volume 95.4 fL (83.0-100.0); Mean Platelet Volume 11.4 fL (9.4-12.4); Monocytes # 1.5 K/mcL (0.0-1.3); Monocytes % 9.9 %; Neutrophils # 12.7 K/mcL (1.6-8.9); Platelet Count 266 K/mcL (140-400); Red Blood Count 4.56 M/mcL (4.19-5.50); Red Cell Distribution Width 13.9 % (11.5-14.5); Segmented Neutrophils % 83.9 %
[2017-10-09 16:34] LABS: Bilirubin,Urine Small (Negative); Blood,Urine Trace-intact (Negative); Clarity,Urine Clear (Clear); Color,Urine Amber (Yellow); Glucose,Urine (UA) Normal (Normal); Ketones,Urine Negative (Negative); Leukocyte Esterase,Urine Negative (Negative); Nitrite,Urine Negative (Negative); Protein,Urine 30 mg/dL (Neg-Trace)
[2017-10-09 16:36] LABS: INR 1.3; Prothrombin Time 14.2 Seconds (9.4-12.1)
[2017-10-09 16:39] LABS: Activated Partial Thrombo Time 29.1 Seconds (26.0-36.0)
[2017-10-09 16:40] LABS: RBC,Urine 0-3 per hpf (0-3); WBC,Urine 0-3 per hpf (0-3)
[2017-10-09 16:41] LABS: Bacteria,Urine Many per hpf (None-Few); Mucus,Urine Few (Few); Squamous Epithelial Cell,Urine Many per lpf (None-Few)
[2017-10-09 16:48] LABS: Alanine Aminotransferase 12 Units/L (7-52); Albumin 3.4 g/dL (3.5-5.7); Albumin/Globulin Ratio 1.1 (1.1-2.2); Alkaline Phosphatase 158 Units/L (34-104); Aspartate Amino Transferase 12 Units/L (13-39); BUN/Creatinine Ratio 24 (6-26); Bilirubin,Total 1.4 mg/dL (0.3-1.0); Blood Urea Nitrogen 23 mg/dL (8-23); Calcium 9.2 mg/dL (8.6-10.3); Carbon Dioxide 25 mEq/L (23-29); Chloride 100 mEq/L (98-107); Globulin 3.1 g/dL (2.4-3.5); Glucose 105 mg/dL (70-105); Osmolality,Calculated 282 (280-300); Sodium 134 mEq/L (136-145); Total Protein 6.5 g/dL (6.4-8.9); eGFR For African Americans > 60 (> 60); eGFR For Non-African Americans > 60 (> 60)
[2017-10-09] MEDS ORDERED: Fluticasone Propionate Nasal 50 MCG/SPRAY BOTTLE NS PRN (18:14)
[2017-10-09] MEDS ORDERED: Naloxone 0.4 MG/ML INJ IVP PRN (18:14)
[2017-10-09] MEDS ORDERED: Nitroglycerin 0.4 MG TAB.SUBL SL PRN (18:14)
[2017-10-09] MEDS ORDERED: Loratadine 10 MG TABLET PO PRN (18:14)
[2017-10-09] MEDS: 0.9 % Sodium Chloride 1,000 ML IVC SCH (20:34)
[2017-10-09] MEDS: methylPREDNISolone 125 MG/2 ML VIAL IVP SCH (22:00)
[2017-10-09] MEDS: Ipratropium/Albuterol Neb 3 ML IH SCH (22:00)
[2017-10-09] MEDS: Albuterol 2.5 MG/3 ML NEBULIZER IH SCH (22:00)
[2017-10-10] MEDS: Albuterol 2.5 MG/3 ML NEBULIZER IH SCH ×4 (03:32→21:05)
[2017-10-10] MEDS: Ipratropium/Albuterol Neb 3 ML IH SCH ×4 (03:32→21:05)
[2017-10-10] MEDS: 0.9 % Sodium Chloride 1,000 ML IVC SCH (03:50)
[2017-10-10] MEDS: *HR* Enoxaparin 40 MG/0.4 ML SYRINGE SQ SCH (05:09)
[2017-10-10] MEDS: Ibuprofen 400 MG TABLET PO PRN (05:09)
[2017-10-10] MEDS: cefTRIAXone 1,000 MG in Water for inj. (sterile) 20 ML 10 ML IVP SCH ×2 (05:10→16:33)
[2017-10-10] MEDS: methylPREDNISolone 125 MG/2 ML VIAL IVP SCH ×3 (05:10→21:05)
[2017-10-10] MEDS ORDERED: CEFTRIAXONE IN IS-OSM DEXTROSE 1 GM/50 ML PIGGYBACK IV SCH (06:00)
[2017-10-10] MEDS ORDERED: cefTRIAXone 1,000 MG in Water for inj. (sterile) 20 ML 10 ML IVP SCH (06:00)
[2017-10-10 07:10] LABS: Basophils # 0.1 K/mcL (0.0-0.2); Basophils % 0.4 %; Eosinophils # 0.1 K/mcL (0.0-0.6); Eosinophils % 0.6 %; Hematocrit 37.2 % (37.5-50.1); Hemoglobin 12.5 g/dL (12.9-16.9); Immature Granulocytes % 0.7 % (0-4); Lymphocytes # 0.5 K/mcL (0.6-4.6); Lymphocytes % 4.3 %; Mean Corpuscular HGB Conc 33.6 g/dL (31.6-35.5); Mean Corpuscular Hemoglobin 32.7 pg (28.0-33.3); Mean Corpuscular Volume 97.4 fL (83.0-100.0); Mean Platelet Volume 11.1 fL (9.4-12.4); Neutrophils # 10.5 K/mcL (1.6-8.9); Platelet Count 245 K/mcL (140-400); Red Blood Count 3.82 M/mcL (4.19-5.50); Red Cell Distribution Width 14.2 % (11.5-14.5)
[2017-10-10 07:13] LABS: BUN/Creatinine Ratio 24 (6-26); Blood Urea Nitrogen 20 mg/dL (8-23); Calcium 8.4 mg/dL (8.6-10.3); Carbon Dioxide 24 mEq/L (23-29); Chloride 103 mEq/L (98-107); Glucose 106 mg/dL (70-105); Osmolality,Calculated 279 (280-300); Potassium 4.1 mEq/L (3.5-5.1); Sodium 133 mEq/L (136-145); eGFR For African Americans > 60 (> 60); eGFR For Non-African Americans > 60 (> 60)
[2017-10-10] MEDS: (Tiotropium Bromide [Spiriva Respimat] 2 PUFF) IH SCH (08:04)
[2017-10-10] MEDS: Folic Acid 1 MG TABLET PO SCH (08:04)
[2017-10-10 08:25] LABS: Monocytes # 0.9 K/mcL (0.0-1.3)
--- NOTE | 2017-10-10 13:10 | Internal Med History&Physical ---
Date of Encounter: 10/10/17 Time of Encounter: 13:08 Assessment and Plan (1) Pneumonia Current visit: Yes Status: Acute Patient was seen in ED for complaints of shortness of breath over the past 3 days. Patient has extensive history of COPD and also states that he was diagnosed with flu last week. Chest x-ray taken in ED showed left lung opacities. Today patient states that his breathing has improved and denies any productive cough. Patient still complains of shortness of breath during exertion. Patient also had complaints of chills earlier in the day with diaphoresis. We will continue patient on current antibiotics. We will continue patient on home meds with bronchodilators. Qualifiers: Pneumonia type: due to unspecified organism Laterality: left Lung location: unspecified part of lung Qualified Code(s): J18.9 - Pneumonia, unspecified organism (2) UTI (urinary tract infection) Current visit: Yes Status: Acute Patient's urinalysis on admission showed positive for UTI. Patient currently on antibiotics for pneumonia, which being broad-spectrum should cover his UTI. Patient did have complaints of episodes of chills with diaphoresis earlier today. Denies any current dysuria Qualifiers: Urinary tract infection type: site unspecified Hematuria presence: without hematuria Qualified Code(s): N39.0 - Urinary tract infection, site not specified (3) Essential hypertension Current visit: No Status: Chronic Vital signs have been stable. We will continue with current medications. Internal Medicine - H&P: HPI Admitted From: Home Plans for Post Hospital Care: Home History of present illness: Mr. Denis is a 62 year old male who presented in ED with c/o shortness of breath and fever. Patient was diagnosed with influenza several days ago. Since that time he has continued to feel short of breath and running fever. He has been poorly and drinking poorly. He states no chest pain. He states his cough is relatively nonproductive. He has a known history of COPD which he normally requires oxygen, on an as-needed basis. He however over the last 3 days has been using oxygen continuously. Patient has shown some improvement after albuterol treatment. Chest x-ray shows new developing pulmonary infiltrates consistent with a new pneumonia. He also states that his urine starting to burn over that last few days. U/A showed positive UTI. Patient also had a fall yesterday in his been having some radicular pain down his right leg, but state that his pain has improved overnight. Today, patient states that his breathing has improving today, but that he has been having a few episodes in which he has felt chilled and noticed that he became diaphoretic. States that he felt feverish. Denies any discomfort, chest pain or dyspnea. Past Med Surg Social Fam HX - Past Medical History Medical history: arthritis, asthma, COPD, hyperlipidemia, hypertension, RA, other Psychiatric history: no psych history - Past Surgical History Surgical History: cholecystectomy, herniorrhaphy, other - Social History Smoking Status: Former smoker Smokeless Tobacco Status: No Alcohol use: none Drug use: none - Family History Mother Adopted: [place]: Mary Denis Family Member Ethnicity: Non- Living Status: Age at : 83 Cause of : unknown Hx Family Cardiac Disorders: No Hx Family Respiratory Disorders: No Hx Family Cancer: No Hx Family GI Disorders: No Hx Family Genitourinary Disorders: No Hx Family Endocrine Disorder: No Hx Family Musculoskeletal Disorders: No Hx Family Neuromuscular Disorders: No Hx Family Neurologic Disorders: No Hx Family HEENT Disorders: No Hx Family Autoimmune Disorders: No Hx Family Reproductive Disorders: No Hx Family Psychosocial Disorders: No Hx Family Medical Disorders: No Father Adopted: No Family Member Ethnicity: Non- Living Status: Internal Medicine - H&P: Meds Ipratropium/Albuterol Sulfate [Combivent Respimat Inhal [place]] 1 puff IH QID [History] Losartan Potassium [Cozaar] 50 mg PO DAILY 07/23/15 [History] Nitroglycerin 0.4 mg SL Q5MIN PRN #20 tab.subl 07/25/15 [Rx] Folic Acid 1 mg PO DAILY 01/20/17 [History] Pravastatin Sodium [Pravachol] 40 mg PO QPM 01/20/17 [History] Fluticasone Propionate Nasal [Flonase] 50 mcg NS DAILY PRN 03/11/17 [History] Ibuprofen 400 mg PO Q8H PRN 03/11/17 [History] Ipratropium/Albuterol Neb [Duoneb] 3 ml IH QID PRN 03/11/17 [History] Loratadine [Claritin] 10 mg PO DAILY PRN 03/11/17 [History] Cyclobenzaprine [Flexeril] 10 mg PO TID PRN #30 tablet 03/14/17 [Rx] Metoprolol [Lopressor] 12.5 mg PO BID #60 tablet 03/30/17 [Rx] Albuterol Sulfate [Albuterol Inhaler] 1 - 2 puff IH Q6H PRN 05/18/17 [History] Methotrexate [Otrexup] 15 mg PO QWEEK #0 05/20/17 [Rx] Ondansetron ODT [Zofran ODT] 4 mg SL Q6HR #12 tab.rapdis 07/21/17 [Rx] Oseltamivir [Tamiflu] 75 mg PO BID #9 capsule 10/06/17 [Rx] 3 Allergy/AdvReac Type Severity Reaction Status Date / Time salmeterol Allergy Swelling Verified 07/21/17 05:57 of Lip/Tongue/Throat Sulfa (Sulfonamide Allergy Swelling Verified 07/21/17 05:57 Antibiotics) of Lip/Tongue/Throat All Systems PM: A 10-system review of systems was performed and is negative for pertinent findings except as documented above in the HPI. - Constitutional Constitutional: as per HPI, no chills, no fever(s), no night sweats - EENT Eyes: no change in vision, no discharge, no pain, no photophobia Ears: no ear discharge, no ear pain, no tinnitus Nose, mouth and throat: no dysphagia, no nasal discharge, no neck pain, no sore throat - Cardiovascular Cardiovascular ROS IM: as per HPI, no chest pain, no diaphoresis, no dyspnea, no lightheadedness, no palpitations, no syncope - Respiratory Respiratory: as per HPI, no cough, no dyspnea, no wheezing, no excessive phlegm production - Gastrointestinal Gastrointestinal: no abdominal pain, no diarrhea, no hematemesis, no hematochezia, no melena, no nausea, no vomiting - Genitourinary Genitourinary ROS male: as per HPI - Musculoskeletal Musculoskeletal ROS IM: no numbness, no tingling - Integumentary Integumentary IM: no rash, no unusual bruising - Neurological Neurological ROS: no confusion, no convulsions, no focal weakness, no numbness, no tingling, no tremor(s) - Hematologic/Lymphatic Hematologic/Lymphatic: no easy bruising - Constitutional Vitals: Temp Pulse Resp BP Pulse Ox 97.8 F 93 16 112/72 94 10/10/17 08:00 10/10/17 08:00 10/10/17 08:00 10/10/17 08:00 10/10/17 08:00 General appearance: Present: A&O X 3 - Head Head exam: Present: atraumatic, normocephalic - Eye Eye exam: Present: PERRL, conjuntiva pink, sclera anicteric Pupils: Present: PERRL - Neck Neck exam general surgery: Present: supple, trachea midline. Absent: lymphadenopathy - Respiratory Respiratory exam: Present: CTAB. Absent: accessory muscle use, rales, rhonchi, wheezes Additional comments: Lungs are CTA throughout upper gar and diminished bases. Resp efforts relaxed. - Cardiovascular Cardiovascular exam: Present: RRR, +S1, +S2. Absent: diastolic murmur, gallop, rubs, systolic murmur - GI/Abdominal GI/Abdominal exam: Present: normal bowel sounds, soft, no peritoneal signs. Absent: distended, tenderness - Extremities Exam Extremities exam: Present: warm, radial pulses palpable and symmetrical. Absent : calf tenderness, cyanotic, pedal edema - Neurological Exam Neurological exam: Present: CN II-XII intact, oriented X3, no focal deficits. Absent: pronater drift, facial droop, speech deficit - Skin Skin exam: Present: dry, intact Internal Med - H&P Results - Labs CBC & Chem 7: 10/10/17 06:48 10/10/17 06:48
--- NOTE | 2017-10-10 15:21 | Electrocardiograph Report ---
[address] [address] Test Date: 2017-10-09 Pat Name: Demond Denis Department: 2000 Room: 118 Gender: M Supervisor [place]: : 1955 Requested By: Demond Abrams Order Number: [id number] Reading MD: Cami Ryan Measurements Intervals [place] Rate: 125 P: 76 SC: 152 QRS: 88 QRSD: 121 T: 54 QT: 310 QTc: 384 Interpretive Statements SINUS TACHYCARDIA RIGHT BUNDLE BRANCH BLOCK Electronically Signed On 10-10-2017 15:20:17 EDT by Cami Ryan
[2017-10-11] MEDS: Ipratropium/Albuterol Neb 3 ML IH SCH ×4 (03:30→21:48)
[2017-10-11] MEDS: Albuterol 2.5 MG/3 ML NEBULIZER IH SCH ×2 (03:43→09:08)
[2017-10-11 05:14] LABS: Basophils % 0.1 %; Hematocrit 36.8 % (37.5-50.1); Hemoglobin 12.5 g/dL (12.9-16.9); Immature Granulocytes % 0.8 % (0-4); Lymphocytes # 0.6 K/mcL (0.6-4.6); Lymphocytes % 4.3 %; Mean Corpuscular Hemoglobin 33.1 pg (28.0-33.3); Mean Corpuscular Volume 97.4 fL (83.0-100.0); Mean Platelet Volume 10.9 fL (9.4-12.4); Monocytes % 4.9 %; Neutrophils # 11.9 K/mcL (1.6-8.9); Platelet Count 311 K/mcL (140-400); Red Blood Count 3.78 M/mcL (4.19-5.50); Red Cell Distribution Width 14.1 % (11.5-14.5); Segmented Neutrophils % 89.9 %
[2017-10-11 05:18] LABS: Monocytes # 0.7 K/mcL (0.0-1.3)
[2017-10-11 05:31] LABS: BUN/Creatinine Ratio 26 (6-26); Blood Urea Nitrogen 22 mg/dL (8-23); Calcium 8.9 mg/dL (8.6-10.3); Carbon Dioxide 22 mEq/L (23-29); Chloride 107 mEq/L (98-107); Glucose 177 mg/dL (70-105); Osmolality,Calculated 292 (280-300); Potassium 3.5 mEq/L (3.5-5.1); Sodium 137 mEq/L (136-145); eGFR For African Americans > 60 (> 60); eGFR For Non-African Americans > 60 (> 60)
[2017-10-11] MEDS: cefTRIAXone 1,000 MG in Water for inj. (sterile) 20 ML 10 ML IVP SCH ×2 (06:33→17:04)
[2017-10-11] MEDS: methylPREDNISolone 125 MG/2 ML VIAL IVP SCH (06:33)
[2017-10-11] MEDS: *HR* Enoxaparin 40 MG/0.4 ML SYRINGE SQ SCH (06:34)
[2017-10-11] MEDS: Folic Acid 1 MG TABLET PO SCH (08:53)
[2017-10-11] MEDS: (Tiotropium Bromide [Spiriva Respimat] 2 PUFF) IH SCH (08:54)
--- NOTE | 2017-10-11 10:59 | Internal Med Progress Note ---
Date of Encounter: 10/11/17 Time of Encounter: 10:57 - Assessment and plan (1) Essential hypertension Current Visit: No Status: Chronic Assessment and plan: on meds and is s table continue to follow and adjsut med as needed (2) Rheumatoid arthritis Current Visit: No Status: Chronic Assessment and plan: hx of RA on MTX every week continue present doses as given his RA is stable no other abnormality in his liver enzymes noted noted Qualifiers: Rheumatoid arthritis location: unspecified site Rheumatoid factor presence : unspecified presence Qualified Code(s): M06.9 - Rheumatoid arthritis, unspecified (3) Acute exacerbation of chronic obstructive airways disease Current Visit: Yes Status: Acute Assessment and plan: Acute exacerbation of COPD with Lobar Pneumonia . On CAP coverage and seems to be doing well . His WBC are getting better cultures results are pending . Clinically he is ambulatory and slowly getting better. On IV solumedrol high dose , switch to oral 40 mg prednsione qd and then switch to decreasing dose as Also need to followup on his Blood siuagrs as it has also gone up some what and start sliding scale and adjust as needed - Subjective Interval history: Seen as followup and cross coverage. he feels that he is feeling much better and his breathing has increased considerably. He denies any fever or chills no nasuea vomiting or dirrhea he is able to walk without any difficulty but does get SOB on exertion - Constitutional Vitals: Temp Pulse Resp BP Pulse Ox 97.9 F 89 20 143/76 98 10/11/17 10:52 10/11/17 10:52 10/11/17 10:52 10/11/17 10:52 10/11/17 10:52 General appearance: Present: A&O X 3, pleasant, no acute distress, obese, severe distress - Head Head exam: Present: atraumatic - Eye Eye exam: Present: EOMI, PERRL - Neck Neck exam general surgery: Present: supple. Absent: tenderness, nuchal rigidity , thyromegaly - Respiratory Additional comments: Air entery equal both side some what decreased air entry Mildly rhonchi noted both sides no crackles baseline - Cardiovascular Cardiovascular exam: Present: RRR, +S1, +S2. Absent: gallop, irregular rhythm, JVD, tachycardia - GI/Abdominal GI/Abdominal exam: Present: normal bowel sounds, soft. Absent: distended, firm , rigid, tenderness - Extremities Exam Extremities exam: Present: pedal edema Additional comments: Positive + both sides pitting - Neurological Exam Neurological exam: Present: alert, CN II-XII intact, oriented X3, reflexes normal, no focal deficits, strengths equal and symetr throughout. Absent: pronater drift, facial droop, speech deficit Internal Medicine: Result - Labs CBC & Chem 7: 10/11/17 04:57 10/11/17 04:57 Labs: Short CBC 10/11/17 Range/Units 04:57 WBC 13.2 H (4.3-11.1) K/mcL Hgb 12.5 L (12.9-16.9) g/dL Hct 36.8 L (37.5-50.1) % Plt Count 311 (140-400) K/mcL Neutrophils # 11.9 H (1.6-8.9) K/mcL BMP 10/11/17 04:57 Sodium 137 Potassium 3.5 Chloride 107 Carbon Dioxide 22 L BUN 22 Creatinine 0.84 Glucose 177 H Calcium 8.9 - ABG Interpretation ABG results: PT/INR, D-dimer PT 14.2 Seconds (9.4-12.1) H 10/09/17 16:12 - Impressions Impressions Chest X-Ray 10/11/17 06:00 IMPRESSION: In this patient with advanced COPD, multifocal airspace opacities are stable in the left lung. D/ / Oumar Jacques MD / Oumar Jacques MD Interpreting Provider: Oumar Jacques MD Consult Discharge Plan - Plan Referrals: Franklyn Chou MD [Primary Care Provider] -
[2017-10-11] MEDS ORDERED: Ondansetron ODT 4 MG TAB.RAPDIS SL PRN (13:28)
[2017-10-11] MEDS: predniSONE 20 MG TABLET PO SCH (17:05)
[2017-10-12] MEDS: Ipratropium/Albuterol Neb 3 ML IH SCH ×4 (03:42→20:55)
[2017-10-12] MEDS: Ibuprofen 400 MG TABLET PO PRN ×2 (03:56→20:55)
[2017-10-12 05:14] LABS: Basophils % 0.2 %; Hemoglobin 12.3 g/dL (12.9-16.9); Immature Granulocytes % 0.9 % (0-4); Lymphocytes # 0.9 K/mcL (0.6-4.6); Lymphocytes % 4.4 %; Mean Corpuscular HGB Conc 33.2 g/dL (31.6-35.5); Mean Corpuscular Hemoglobin 32.6 pg (28.0-33.3); Mean Corpuscular Volume 98.1 fL (83.0-100.0); Mean Platelet Volume 10.9 fL (9.4-12.4); Monocytes # 0.8 K/mcL (0.0-1.3); Monocytes % 4.3 %; Neutrophils # 17.7 K/mcL (1.6-8.9); Platelet Count 386 K/mcL (140-400); Red Blood Count 3.77 M/mcL (4.19-5.50); Red Cell Distribution Width 14.6 % (11.5-14.5); Segmented Neutrophils % 90.2 %
[2017-10-12] MEDS: cefTRIAXone 1,000 MG in Water for inj. (sterile) 20 ML 10 ML IVP SCH ×2 (06:08→17:22)
[2017-10-12] MEDS: *HR* Enoxaparin 40 MG/0.4 ML SYRINGE SQ SCH (06:09)
[2017-10-12] MEDS: Folic Acid 1 MG TABLET PO SCH (08:06)
[2017-10-12] MEDS: predniSONE 20 MG TABLET PO SCH ×2 (08:06→17:22)
[2017-10-12] MEDS: (Tiotropium Bromide [Spiriva Respimat] 2 PUFF) IH SCH (08:07)
--- NOTE | 2017-10-12 08:50 | Internal Med Progress Note ---
Date of Encounter: 10/12/17 Time of Encounter: 08:48 - Assessment and plan (1) Essential hypertension Current Visit: No Status: Chronic Assessment and plan: Stabe and seems to be well controlled will continue to followup (2) Rheumatoid arthritis Current Visit: No Status: Chronic Assessment and plan: on mTX doing well at the present time Qualifiers: Rheumatoid arthritis location: unspecified site Rheumatoid factor presence : unspecified presence Qualified Code(s): M06.9 - Rheumatoid arthritis, unspecified (3) Acute exacerbation of chronic obstructive airways disease Current Visit: Yes Status: Acute Assessment and plan: Hs breathing is getting better he is getting more strength . He should be able to to go home today or tomorrow . His WBC have increased but this most likely is due to his steroid use . He is afebrile and clinically is doing well and improving . he is on 40 mg Prednisone now which can be further decreased as he improves - Subjective Interval history: Seen as followup and cross coverage. he feels that he is feeling much better and his breathing has increased considerably. He denies any fever or chills no nausea vomiting or diarrhea he is able to walk without any difficulty but does get SOB on exertion. Overall he feels much better today . Has some cough and is brining up some sputum . - Constitutional Vitals: Temp Pulse Resp BP Pulse Ox 97.3 F L 70 18 129/75 98 10/12/17 07:38 10/12/17 07:38 10/12/17 07:38 10/12/17 07:38 10/12/17 07:38 General appearance: Present: A&O X 3, pleasant, no acute distress, obese, severe distress - Head Head exam: Present: atraumatic - Eye Eye exam: Present: EOMI, PERRL - Neck Neck exam general surgery: Present: supple. Absent: nuchal rigidity, thyromegaly - Respiratory Respiratory exam: Present: CTAB. Absent: respiratory distress, rhonchi, stridor , wheezes, tachypnea - Cardiovascular Cardiovascular exam: Present: +S1, +S2. Absent: irregular rhythm, JVD - GI/Abdominal GI/Abdominal exam: Present: normal bowel sounds, soft. Absent: distended, firm , guarding, rigid Additional comments: obese abdomen - Extremities Exam Extremities exam: Present: pedal edema. Absent: tenderness Additional comments: pitting + on left side more then right leg - Neurological Exam Neurological exam: Present: alert, CN II-XII intact, oriented X3, no focal deficits. Absent: facial droop, speech deficit Internal Medicine: Result - Labs CBC & Chem 7: 10/12/17 04:26 10/11/17 04:57 Labs: Short CBC 10/12/17 Range/Units 04:26 WBC 19.6 H (4.3-11.1) K/mcL Hgb 12.3 L (12.9-16.9) g/dL Hct 37.0 L (37.5-50.1) % Plt Count 386 (140-400) K/mcL Neutrophils # 17.7 H (1.6-8.9) K/mcL - ABG Interpretation ABG results: PT/INR, D-dimer PT 14.2 Seconds (9.4-12.1) H 10/09/17 16:12 - Impressions Impressions Chest X-Ray 10/11/17 06:00 IMPRESSION: In this patient with advanced COPD, multifocal airspace opacities are stable in the left lung. D/ / Oumar Jacques MD / Oumar Jacques MD Interpreting Provider: Oumar Jacques MD Consult Discharge Plan - Plan Referrals: Franklyn Chou MD [Primary Care Provider] -
[2017-10-12] MEDS ORDERED: *HR* Methotrexate 2.5 MG TABLET PO SCH (09:00)
[2017-10-13] MEDS: Ipratropium/Albuterol Neb 3 ML IH SCH ×4 (03:44→21:08)
[2017-10-13] MEDS: *HR* Enoxaparin 40 MG/0.4 ML SYRINGE SQ SCH (05:57)
[2017-10-13] MEDS: cefTRIAXone 1,000 MG in Water for inj. (sterile) 20 ML 10 ML IVP SCH ×2 (05:58→18:57)
--- NOTE | 2017-10-13 10:13 | Internal Med Progress Note ---
Date of Encounter: 10/13/17 Time of Encounter: 10:10 - Assessment and plan (1) Pneumonia Current Visit: Yes Status: Acute Assessment and plan: No acute issues. Patient continues with complaints of dyspnea on exertion. No productive cough. Oximetry greater than 90% on oxygen. No fever or chills. Patient was switched to oral prednisone. We will continue with titrating dosing Qualifiers: Pneumonia type: due to unspecified organism Laterality: left Lung location: unspecified part of lung Qualified Code(s): J18.9 - Pneumonia, unspecified organism (2) UTI (urinary tract infection) Current Visit: Yes Status: Acute Assessment and plan: No acute issues. Patient denies fever or chills. We will continue on current antibiotics. Qualifiers: Urinary tract infection type: site unspecified Hematuria presence: without hematuria Qualified Code(s): N39.0 - Urinary tract infection, site not specified (3) Essential hypertension Current Visit: No Status: Chronic Assessment and plan: Vital signs are stable. We will continue with current medications. - Time Spent With Patient less than 15 minutes - Subjective Interval history: Patient appears relaxed and denies any discomforts. Patient states she continues to have dyspnea with minimal exertion. Patient states that he ambulated to the restroom and became short of breath. Denies any productive cough or orthopnea. Denies palpitations. Denies any fever or chills. - Constitutional Vitals: Temp Pulse Resp BP Pulse Ox 97.6 F 69 16 124/69 98 10/13/17 06:46 10/13/17 06:46 10/13/17 06:46 10/13/17 06:46 10/13/17 06:46 General appearance: Present: A&O X 3, pleasant, no acute distress, obese, severe distress - Head Head exam: Present: atraumatic, normocephalic - Eye Eye exam: Present: PERRL, conjuntiva pink, sclera anicteric Pupils: Present: PERRL - Neck Neck exam general surgery: Present: supple, trachea midline. Absent: lymphadenopathy - Respiratory Respiratory exam: Present: CTAB. Absent: accessory muscle use, rales, rhonchi, wheezes - Cardiovascular Cardiovascular exam: Present: RRR, +S1, +S2. Absent: diastolic murmur, gallop, rubs, systolic murmur - GI/Abdominal GI/Abdominal exam: Present: normal bowel sounds, soft, no peritoneal signs. Absent: distended, tenderness - Extremities Exam Extremities exam: Present: warm, radial pulses palpable and symmetrical. Absent : calf tenderness, cyanotic, pedal edema - Neurological Exam Neurological exam: Present: CN II-XII intact, oriented X3, no focal deficits. Absent: pronater drift, facial droop, speech deficit - Skin Skin exam: Present: dry, intact Internal Medicine: Result - Labs CBC & Chem 7: 10/12/17 04:26 10/11/17 04:57 - ABG Interpretation ABG results: PT/INR, D-dimer PT 14.2 Seconds (9.4-12.1) H 10/09/17 16:12 - Impressions Impressions Chest X-Ray 10/13/17 08:28 IMPRESSION: 1. Unchanged left upper lobe opacity. Superimposed airspace disease is not excluded. 2. Bullous emphysema. 3. Pulmonary vascular congestion and/or chronic interstitial change. D/ / Victorino Judge MD / Victorino Judge MD Interpreting Provider: Victorino Judge MD Consult Discharge Plan - Plan Referrals: Franklyn Chou MD [Primary Care Provider] -
[2017-10-13] MEDS: (Tiotropium Bromide [Spiriva Respimat] 2 PUFF) IH SCH (10:53)
[2017-10-13] MEDS: Folic Acid 1 MG TABLET PO SCH (10:55)
[2017-10-13] MEDS: predniSONE 20 MG TABLET PO SCH ×2 (11:01→15:32)
[2017-10-13] MEDS: Budesonide/Formoterol 160/4.5 MDI IH SCH (21:08)
[2017-10-14] MEDS: Ipratropium/Albuterol Neb 3 ML IH SCH ×4 (04:21→20:38)
[2017-10-14] MEDS: cefTRIAXone 1,000 MG in Water for inj. (sterile) 20 ML 10 ML IVP SCH ×2 (04:21→17:55)
[2017-10-14] MEDS: *HR* Enoxaparin 40 MG/0.4 ML SYRINGE SQ SCH (04:22)
[2017-10-14] MEDS: Budesonide/Formoterol 160/4.5 MDI IH SCH ×2 (08:01→20:35)
[2017-10-14] MEDS: Folic Acid 1 MG TABLET PO SCH (08:17)
[2017-10-14] MEDS: predniSONE 20 MG TABLET PO SCH (08:17)
[2017-10-14] MEDS ORDERED: predniSONE 20 MG TABLET PO SCH (09:00)
--- NOTE | 2017-10-14 11:53 | Internal Med Progress Note ---
Date of Encounter: 10/14/17 Time of Encounter: 11:53 - Assessment and plan (1) Pneumonia Current Visit: Yes Status: Acute Assessment and plan: No acute issues. Patient continues with complaints of dyspnea on exertion. No productive cough. Oximetry greater than 90% on oxygen. No fever or chills. Patient states that he feels that his respiratory effort has been improving over the last few days. Qualifiers: Pneumonia type: due to unspecified organism Laterality: left Lung location: unspecified part of lung Qualified Code(s): J18.9 - Pneumonia, unspecified organism (2) UTI (urinary tract infection) Current Visit: Yes Status: Acute Assessment and plan: No acute issues. Patient denies fever or chills. We will continue on current antibiotics. Qualifiers: Urinary tract infection type: site unspecified Hematuria presence: without hematuria Qualified Code(s): N39.0 - Urinary tract infection, site not specified (3) Essential hypertension Current Visit: No Status: Chronic Assessment and plan: Vital signs are stable. We will continue with current medications. - Subjective Interval history: Patient appears relaxed and denies any discomforts. Patient states she continues to have dyspnea with minimal exertion. Patient states that he ambulated to the restroom and became short of breath. Denies any productive cough or orthopnea. Denies palpitations. Denies any fever or chills. - Constitutional Vitals: Temp Pulse Resp BP Pulse Ox 98.0 F 67 20 139/74 98 10/14/17 10:47 10/14/17 10:47 10/14/17 10:47 10/14/17 10:47 10/14/17 10:47 General appearance: Present: A&O X 3, pleasant, no acute distress, obese, severe distress - Head Head exam: Present: atraumatic, normocephalic - Eye Eye exam: Present: PERRL, conjuntiva pink, sclera anicteric Pupils: Present: PERRL - Neck Neck exam general surgery: Present: supple, trachea midline. Absent: lymphadenopathy - Respiratory Respiratory exam: Present: CTAB. Absent: accessory muscle use, rales, rhonchi, wheezes - Cardiovascular Cardiovascular exam: Present: RRR, +S1, +S2. Absent: diastolic murmur, gallop, rubs, systolic murmur - GI/Abdominal GI/Abdominal exam: Present: normal bowel sounds, soft, no peritoneal signs. Absent: distended, tenderness - Extremities Exam Extremities exam: Present: warm, radial pulses palpable and symmetrical. Absent : calf tenderness, cyanotic, pedal edema - Neurological Exam Neurological exam: Present: CN II-XII intact, oriented X3, no focal deficits. Absent: pronater drift, facial droop, speech deficit - Skin Skin exam: Present: dry, intact Internal Medicine: Result - Labs CBC & Chem 7: 10/12/17 04:26 10/11/17 04:57 - ABG Interpretation ABG results: PT/INR, D-dimer PT 14.2 Seconds (9.4-12.1) H 10/09/17 16:12 Consult Discharge Plan - Plan Referrals: Franklyn Chou MD [Primary Care Provider] -
[2017-10-15] MEDS: Ipratropium/Albuterol Neb 3 ML IH SCH ×3 (05:35→15:23)
[2017-10-15] MEDS: cefTRIAXone 1,000 MG in Water for inj. (sterile) 20 ML 10 ML IVP SCH (05:36)
[2017-10-15] MEDS: *HR* Enoxaparin 40 MG/0.4 ML SYRINGE SQ SCH (05:36)
--- NOTE | 2017-10-15 09:09 | Internal Med Progress Note ---
Date of Encounter: 10/15/17 Time of Encounter: 09:05 - Assessment and plan (1) Pneumonia Current Visit: Yes Status: Acute Assessment and plan: No acute issues. Patient continues with complaints of dyspnea on exertion. CAT scan of the chest confirmed left upper lobe pneumonia, otherwise was nonacute. No productive cough. Oximetry greater than 90% on oxygen. No fever or chills. Patient states that he feels that his respiratory effort has been improving over the last few days. Will discuss with Dr. Lam Qualifiers: Pneumonia type: due to unspecified organism Laterality: left Lung location: unspecified part of lung Qualified Code(s): J18.9 - Pneumonia, unspecified organism (2) UTI (urinary tract infection) Current Visit: Yes Status: Acute Assessment and plan: No acute issues. Patient denies fever or chills. Afebrile. We will continue on current antibiotics. Qualifiers: Urinary tract infection type: site unspecified Hematuria presence: without hematuria Qualified Code(s): N39.0 - Urinary tract infection, site not specified (3) Essential hypertension Current Visit: No Status: Chronic Assessment and plan: Vital signs are stable. We will continue with current medications. - Subjective Interval history: Patient appears relaxed and denies any discomforts. States that he feels he has improved. Patient states she continues to have dyspnea with minimal exertion. CT of the chest confirmed DINORA pneumonia. Denies any productive cough or orthopnea. Denies palpitations. Denies any fever or chills. - Constitutional Vitals: Temp Pulse Resp BP Pulse Ox 97.8 F 60 16 135/79 100 10/15/17 04:00 10/15/17 04:00 10/15/17 04:00 10/15/17 04:00 10/15/17 04:00 General appearance: Present: A&O X 3, pleasant, no acute distress, obese, severe distress - Head Head exam: Present: atraumatic, normocephalic - Eye Eye exam: Present: PERRL, conjuntiva pink, sclera anicteric Pupils: Present: PERRL - Neck Neck exam general surgery: Present: supple, trachea midline. Absent: lymphadenopathy - Respiratory Respiratory exam: Present: CTAB. Absent: accessory muscle use, rales, rhonchi, wheezes Additional comments: diminished bases. - Cardiovascular Cardiovascular exam: Present: RRR, +S1, +S2. Absent: diastolic murmur, gallop, rubs, systolic murmur - GI/Abdominal GI/Abdominal exam: Present: normal bowel sounds, soft, no peritoneal signs. Absent: distended, tenderness - Extremities Exam Extremities exam: Present: warm, radial pulses palpable and symmetrical. Absent : calf tenderness, cyanotic, pedal edema - Neurological Exam Neurological exam: Present: CN II-XII intact, oriented X3, no focal deficits. Absent: pronater drift, facial droop, speech deficit - Skin Skin exam: Present: dry, intact Internal Medicine: Result - Labs CBC & Chem 7: 10/12/17 04:26 10/11/17 04:57 - ABG Interpretation ABG results: PT/INR, D-dimer PT 14.2 Seconds (9.4-12.1) H 10/09/17 16:12 - Impressions Impressions Chest CT 10/14/17 12:08 IMPRESSION: 1. Consolidation posteriorly along the superior aspect of the left upper lobe, concerning for pneumonia. 2. Severe emphysema. 3. Noncalcified pulmonary nodules are unchanged since at least 07/23/2015, and no further follow-up is required. D/ / 10/14/2017 15:38:22 Giorgi Dinh MD / joey Interpreting Provider: Giorgi Dinh MD Consult Discharge Plan - Plan Referrals: Franklyn Chou MD [Primary Care Provider] -
[2017-10-15] MEDS: Folic Acid 1 MG TABLET PO SCH (10:09)
[2017-10-15] MEDS: Budesonide/Formoterol 160/4.5 MDI IH SCH (10:09)
[2017-10-15] MEDS: predniSONE 20 MG TABLET PO SCH (10:09)
[2017-10-15 14:02] VITALS: BP 106/61
[2017-10-15] MEDS ORDERED: Azithromycin 500 MG in D5% in Water 250 ML IVPB SCH (15:00)
--- NOTE | 2017-10-15 15:09 | Discharge Summary ---
Date of Encounter: 10/15/17 Time of Encounter: 16:00 - Discharge Diagnosis (1) Pneumonia Priority: Primary Status: Acute Qualifiers: Pneumonia type: due to unspecified organism Laterality: left Lung location: upper lobe of lung Qualified Code(s): J18.1 - Lobar pneumonia, unspecified organism (2) Acute and chronic respiratory failure with hypoxia Priority: Secondary Status: Acute Hospital course: Mr. Denis is a 62 year old male Discharge discussed with: patient Time spent discussing smoking cessation with patient: more than 10 minutes - Time Spent with Patient Total time spent providing and/or coordinating discharge services: Less than 30 minutes - Discharge Medications Home Medications: Ipratropium/Albuterol Sulfate [Combivent Respimat Inhal [place]] 1 puff IH QID [History] Losartan Potassium [Cozaar] 50 mg PO DAILY 07/23/15 [History] Nitroglycerin 0.4 mg SL Q5MIN PRN #20 tab.subl 07/25/15 [Rx] Folic Acid 1 mg PO DAILY 01/20/17 [History] Pravastatin Sodium [Pravachol] 40 mg PO QPM 01/20/17 [History] Fluticasone Propionate Nasal [Flonase] 50 mcg NS DAILY PRN 03/11/17 [History] Ibuprofen 400 mg PO Q8H PRN 03/11/17 [History] Ipratropium/Albuterol Neb [Duoneb] 3 ml IH QID PRN 03/11/17 [History] Loratadine [Claritin] 10 mg PO DAILY PRN 03/11/17 [History] Cyclobenzaprine [Flexeril] 10 mg PO TID PRN #30 tablet 03/14/17 [Rx] Metoprolol [Lopressor] 12.5 mg PO BID #60 tablet 03/30/17 [Rx] Albuterol Sulfate [Albuterol Inhaler] 1 - 2 puff IH Q6H PRN 05/18/17 [History] Methotrexate [Otrexup] 15 mg PO QWEEK #0 05/20/17 [Rx] Ondansetron ODT [Zofran ODT] 4 mg SL Q6HR #12 tab.rapdis 07/21/17 [Rx] Oseltamivir [Tamiflu] 75 mg PO BID #9 capsule 10/06/17 [Rx] Allergies/Adverse Reactions: 3 Allergy/AdvReac Type Severity Reaction Status Date / Time salmeterol Allergy Swelling Verified 07/21/17 05:57 of Lip/Tongue/Throat Sulfa (Sulfonamide Allergy Swelling Verified 07/21/17 05:57 Antibiotics) of Lip/Tongue/Throat Date of admission: 10/10/17 11:17 Primary care physician: Franklyn Chou, Discharging clinician: Vic Lam Anticipated date of discharge: 10/15/17 - Constitutional Vitals: Temp Pulse Resp BP Pulse Ox 97.6 F 76 16 106/61 97 10/15/17 12:00 10/15/17 12:00 10/15/17 12:00 10/15/17 12:00 10/15/17 12:00 General appearance: Present: A&O X 3, pleasant, no acute distress, obese, severe distress - Head Head exam: Present: atraumatic, normocephalic - Neck Neck exam general surgery: Present: supple, trachea midline. Absent: lymphadenopathy - Respiratory Respiratory exam: Present: CTAB. Absent: accessory muscle use, rales, rhonchi, wheezes - Cardiovascular Cardiovascular exam: Present: RRR, +S1, +S2. Absent: diastolic murmur, gallop, rubs, systolic murmur - Patient Status Disposition: Home, Self-Care Condition: Fair - Discharge Instructions Follow Up With: Franklyn Chou MD [Primary Care Provider] -
[2017-10-16] MEDS ORDERED: Azithromycin 250 MG TABLET PO SCH (09:00)
[2017-10-18] MEDS ORDERED: predniSONE 20 MG TABLET PO SCH (09:00)
[2017-10-23] MEDS ORDERED: predniSONE 10 MG TABLET PO SCH (09:00)
== END 2017-10-15 16:51 | disposition home or self-care (01) | DRG 193 ==
LOC: EMEROOGRE 15:56 → INPGRE 15:56
PROVIDERS: ADMIT Internal Medicine; ATTEND Internal Medicine

== ENCOUNTER 2018-11-27 13:08 | Observation (INO) ==
[2018-11-27] MEDS ORDERED: methylPREDNISolone 125 MG/2 ML VIAL IVP ONE (13:44)
[2018-11-27 14:08] LABS: ABG Base Excess -1 mEq/L (-2 to 3); ABG HCO3 23 mEq/L (21-27); ABG Oxygen Saturation 98 % (95-98); ABG PCO2 37 mmHg (35-45); ABG PO2 111 mmHg (85-104); ABG TCO2 24 mEq/L (20-26)
[2018-11-27 14:49] LABS: Basophils % 0.4 %; Eosinophils # 0.1 K/mcL (0.0-0.6); Eosinophils % 1.2 %; Hemoglobin 15.3 g/dL (12.9-16.9); Immature Granulocytes % 0.6 % (0-4); Mean Corpuscular Hemoglobin 34.2 pg (28.0-33.3); Mean Corpuscular Volume 100.4 fL (83.0-100.0); Mean Platelet Volume 11.1 fL (9.4-12.4); Monocytes # 0.5 K/mcL (0.0-1.3); Monocytes % 10.5 %; Neutrophils # 3.3 K/mcL (1.6-8.9); Platelet Count 188 K/mcL (140-400); Red Blood Count 4.48 M/mcL (4.19-5.50); Red Cell Distribution Width 13.2 % (11.5-14.5); Segmented Neutrophils % 67.3 %; White Blood Count 4.8 K/mcL (4.3-11.1)
[2018-11-27 14:59] LABS: INR 1.1; Prothrombin Time 12.8 Seconds (9.4-12.1)
[2018-11-27 15:01] LABS: Activated Partial Thrombo Time 30.3 Seconds (26.0-36.0)
[2018-11-27 15:04] LABS: Alanine Aminotransferase 20 Units/L (7-52); Albumin 3.8 g/dL (3.5-5.7); Albumin/Globulin Ratio 1.5 (1.1-2.2); Alkaline Phosphatase 136 Units/L (34-104); Aspartate Amino Transferase 30 Units/L (13-39); BUN/Creatinine Ratio 20 (6-26); Bilirubin,Total 0.7 mg/dL (0.3-1.0); Blood Urea Nitrogen 18 mg/dL (8-23); Calcium 8.9 mg/dL (8.6-10.3); Carbon Dioxide 28 mEq/L (23-29); Chloride 104 mEq/L (98-107); Creatine Kinase 61 Units/L (30-223); Globulin 2.5 g/dL (2.4-3.5); Glucose 93 mg/dL (70-105); Osmolality,Calculated 290 (280-300); Potassium 4.5 mEq/L (3.5-5.1); Sodium 139 mEq/L (136-145); Total Protein 6.3 g/dL (6.4-8.9); eGFR For African Americans > 60 (> 60); eGFR For Non-African Americans > 60 (> 60)
[2018-11-27 15:08] LABS: Troponin I < 0.03 ng/mL (< 0.04)
[2018-11-27] MEDS ORDERED: Ipratropium/Albuterol Neb 3 ML IH ONE (15:26)
--- NOTE | 2018-11-27 15:26 | Emergency Department Note ---
Disposition Clinical Impression: Acute exacerbation of chronic obstructive airways disease Disposition: Admitted As Inpatient Condition: Good Time of Disposition: 15:26 SOB HPI - General Chief Complaint: ED Shortness of Breath/Dyspnea Stated Complaint: shortness of breath Time Seen by Provider: 11/27/18 13:31 Source: patient, family Mode of arrival: ambulatory Limitations: no limitations Nursing Notes Reviewed: Yes Vital Signs Reviewed: Yes - History of Present Illness 63-year-old male presents here with complaints of increasing shortness of breath and productive cough. Patient reports he has been out for 1 week. Patient has been taking Levaquin without improvement. Patient still complains of productive cough of yellow sputum and dyspnea with exertion. Patient denies any chest pain. Patient denies any fevers. Patient has a history of COPD. Pt Subjective Complaint: shortness of breath, cough Onset (ago): week(s) (1) Context: recent illness Severity: moderate Consistency/Duration: gradually worsening Improves with: nothing Worsens with: exertion Known history of: COPD Associated symptoms: Reports: sputum production. Denies: chest pain, fever Treatment prior to arrival: oxygen, bronchodilator, other (antibiotics) Cough present: Yes Cough Description: Voluntary Cough Frequency: Intermittent Sputum production: Yes Sputum Amount: Moderate Sputum Color: Yellow - Related Data Home oxygen amount: 2 liters Home Medications Medication Instructions Recorded Confirmed Ipratropium/Albuterol Sulfate 1 puff IH QID 07/23/15 11/27/18 [Combivent Respimat Inhal [place]] Losartan Potassium [Cozaar] 50 mg PO DAILY 07/23/15 11/27/18 Folic Acid 1 mg PO DAILY 01/20/17 11/27/18 Pravastatin Sodium [Pravachol] 40 mg PO QPM 01/20/17 11/27/18 Fluticasone Propionate Nasal 50 mcg NS DAILY PRN 03/11/17 11/27/18 [Flonase] Ibuprofen 400 mg PO Q8H PRN 03/11/17 11/27/18 Ipratropium/Albuterol Neb [Duoneb] 3 ml IH QID PRN 03/11/17 11/27/18 Loratadine [Claritin] 10 mg PO DAILY PRN 03/11/17 11/27/18 Albuterol Sulfate [Albuterol 1 - 2 puff IH Q6H PRN 05/18/17 11/27/18 Inhaler] Furosemide [Lasix] 20 mg PO PRN PRN 11/27/18 11/27/18 Levofloxacin [Levaquin] 750 mg PO DAILY 11/27/18 11/27/18 Previous Rx's Medication Instructions Recorded Nitroglycerin 0.4 mg SL Q5MIN PRN #20 tab.subl 07/25/15 Metoprolol [Lopressor] 12.5 mg PO BID #60 tablet 03/30/17 Methotrexate [Otrexup] 15 mg PO QWEEK #0 05/20/17 Allergies Allergy/AdvReac Type Severity Reaction Status Date / Time salmeterol Allergy Swelling Verified 07/21/17 05:57 of Lip/Tongue/Throat Sulfa (Sulfonamide Allergy Swelling Verified 07/21/17 05:57 Antibiotics) of Lip/Tongue/Throat All systems ED: reviewed and negative except as stated. Review of Systems: As Per HPI Constitutional: Denies: fever, chills Eyes: Denies: eye discharge ENT ED: Reports: congestion. Denies: throat pain Cardiovascular: Reports: dyspnea on exertion. Denies: chest pain, palpitations Respiratory: Reports: cough, dyspnea, sputum production Gastrointestinal: Denies: abdominal pain, nausea, vomiting Musculoskeletal: Denies: back pain Integumentary: Denies: rash Neurological: Reports: weakness. Denies: headache Hematological/Lymphatic: Denies: easy bleeding, easy bruising Allergic/Immunologic: Denies: urticaria Past Medical History - Past Medical History Attestation: Yes The following information was validated with the patient. Source: patient, nursing notes reviewed Medical history: Reports: arthritis, asthma, COPD, hyperlipidemia, hypertension, RA, other Surgical history: Reports: cholecystectomy, herniorrhaphy, other Psychiatric history: Reports: no psych history - Social History Smoking Status: Former smoker Smokeless Tobacco Status: No Alcohol use: Reports: none Drug use: Reports: none Physical Exam - General Limitations: no limitations General appearance: alert, in no apparent distress - Head Head exam: atraumatic, normocephalic - Eye Eye exam: Present: PERRL, EOMI. Absent: conjunctival injection - ENT ENT exam: normal oropharynx, mucous membranes moist, TM's normal bilaterally - Neck Neck exam: Present: normal inspection, full ROM - Expanded Neck Exam Neck exam focused ED: Absent: JVD - Chest Chest inspection: Present: normal inspection, symmetric chest wall rise - Respiratory Respiratory exam: Absent: respiratory distress - Expanded Respiratory Exam Location: decreased breath sounds: Left, Right, Lower - Cardiovascular Cardiovascular exam: Present: regular rate, normal rhythm, normal heart sounds - Abdominal Exam Abdominal exam: Present: soft, Non-Tender, normal bowel sounds - Extremities Exam Extremities exam: Present: normal inspection. Absent: pedal edema - Neurological Exam Neurological exam: Present: alert - Psychiatric Psychiatric exam: Present: anxious - Skin Skin exam: Present: warm, dry, intact, normal color Course Course Narrative: Patient's ABG was stable.. Patient does have home oxygen at home. Did initially feel patient could be treated as an outpatient but the patient was very uncomfortable with this. The patient got up to go the bathroom he became tachypneic and symptomatic. Will admit patient for further evaluation and management. Patient has been accepted by the hospitalist Dr. Goldman. Vital Signs Temperature 97.4 F L 11/27/18 14:16 Pulse Rate 79 11/27/18 14:16 Respiratory Rate 16 11/27/18 14:16 Blood Pressure 131/85 11/27/18 14:16 O2 Sat by Pulse Oximetry 96 11/27/18 14:16 Temperature 98.0 F 11/28/18 05:13 Pulse Rate 84 11/28/18 05:13 Respiratory Rate 17 11/28/18 05:13 Blood Pressure 145/78 11/28/18 05:13 O2 Sat by Pulse Oximetry 93 11/28/18 05:13 Oxygen Delivery Oxygen Delivery Nasal Cannula Shortness of Breath/Dyspnea - Differential Diagnosis Likely: acute exacerbation of chronic obstructive airways disease. Unlikely: congestive heart failure, pneumonia, pulmonary embolism - Lab Data Lab results reviewed: Yes I reviewed the patient's lab results. Lab results narrative: Patient's labs revealed no acute abnormalities. ABG is stable. Results discussed with patient. Result diagrams: 11/28/18 05:50 11/28/18 05:50 Lab Results 11/27/18 11/27/18 11/27/18 Range/Units 14:06 14:29 14:29 WBC 4.8 (4.3-11.1) K/mcL RBC 4.48 (4.19-5.50) M/mcL Hgb 15.3 (12.9-16.9) g/dL Hct 45.0 (37.5-50.1) % MCV 100.4 H (83.0-100.0) fL MCH 34.2 H (28.0-33.3) pg MCHC 34.0 (31.6-35.5) g/dL RDW 13.2 (11.5-14.5) % Plt Count 188 (140-400) K/mcL MPV 11.1 (9.4-12.4) fL Immature Gran % 0.6 (0-4) % Seg Neutrophils % 67.3 % Lymphocytes % 20.0 % Monocytes % 10.5 % Eosinophils % 1.2 % Basophils % 0.4 % Neutrophils # 3.3 (1.6-8.9) K/mcL Lymphocytes # 1.0 (0.6-4.6) K/mcL Monocytes # 0.5 (0.0-1.3) K/mcL Eosinophils # 0.1 (0.0-0.6) K/mcL Basophils # 0.0 (0.0-0.2) K/mcL PT 12.8 H (9.4-12.1) Seconds INR 1.1 APTT 30.3 (26.0-36.0) Seconds ABG pH 7.40 (7.32-7.45) pH Units ABG pCO2 37 (35-45) mmHg ABG pO2 111 H (85-104) mmHg ABG HCO3 23 (21-27) mEq/L ABG Total CO2 24 (20-26) mEq/L ABG O2 Saturation 98 (95-98) % ABG Base Excess -1 (-2 to 3) mEq/L Sodium (136-145) mEq/L Potassium (3.5-5.1) mEq/L Chloride (98-107) mEq/L Carbon Dioxide (23-29) mEq/L BUN (8-23) mg/dL Creatinine (0.70-1.30) mg/dL Est GFR ( Amer) (> 60) Est GFR (Non-Af Amer) (> 60) BUN/Creatinine Ratio (6-26) Glucose (70-105) mg/dL Calculated Osmolality (280-300) Lactic Acid (0.5-2.2) mmol/L Calcium (8.6-10.3) mg/dL Total Bilirubin (0.3-1.0) mg/dL AST (13-39) Units/L ALT (7-52) Units/L Alkaline Phosphatase (34-104) Units/L Creatine Kinase (30-223) Units/L Troponin I (< 0.04) ng/mL B-Natriuretic Peptide (Less than 100) pg/mL Serum Total Protein (6.4-8.9) g/dL Albumin (3.5-5.7) g/dL Globulin (2.4-3.5) g/dL Albumin/Globulin Ratio (1.1-2.2) 11/27/18 11/27/18 11/27/18 Range/Units 14:29 14:29 14:39 WBC (4.3-11.1) K/mcL RBC (4.19-5.50) M/mcL Hgb (12.9-16.9) g/dL Hct (37.5-50.1) % MCV (83.0-100.0) fL MCH (28.0-33.3) pg MCHC (31.6-35.5) g/dL RDW (11.5-14.5) % Plt Count (140-400) K/mcL MPV (9.4-12.4) fL Immature Gran % (0-4) % Seg Neutrophils % % Lymphocytes % % Monocytes % % Eosinophils % % Basophils % % Neutrophils # (1.6-8.9) K/mcL Lymphocytes # (0.6-4.6) K/mcL Monocytes # (0.0-1.3) K/mcL Eosinophils # (0.0-0.6) K/mcL Basophils # (0.0-0.2) K/mcL PT (9.4-12.1) Seconds INR APTT (26.0-36.0) Seconds ABG pH (7.32-7.45) pH Units ABG pCO2 (35-45) mmHg ABG pO2 (85-104) mmHg ABG HCO3 (21-27) mEq/L ABG Total CO2 (20-26) mEq/L ABG O2 Saturation (95-98) % ABG Base Excess (-2 to 3) mEq/L Sodium 139 (136-145) mEq/L Potassium 4.5 (3.5-5.1) mEq/L Chloride 104 (98-107) mEq/L Carbon Dioxide 28 (23-29) mEq/L BUN 18 (8-23) mg/dL Creatinine 0.88 (0.70-1.30) mg/dL Est GFR ( Amer) > 60 (> 60) Est GFR (Non-Af Amer) > 60 (> 60) BUN/Creatinine Ratio 20 (6-26) Glucose 93 (70-105) mg/dL Calculated Osmolality 290 (280-300) Lactic Acid 1.4 (0.5-2.2) mmol/L Calcium 8.9 (8.6-10.3) mg/dL Total Bilirubin 0.7 (0.3-1.0) mg/dL AST 30 (13-39) Units/L ALT 20 (7-52) Units/L Alkaline Phosphatase 136 H (34-104) Units/L Creatine Kinase 61 (30-223) Units/L Troponin I < 0.03 (< 0.04) ng/mL B-Natriuretic Peptide 61 (Less than 100) pg/mL Serum Total Protein 6.3 L (6.4-8.9) g/dL Albumin 3.8 (3.5-5.7) g/dL Globulin 2.5 (2.4-3.5) g/dL Albumin/Globulin Ratio 1.5 (1.1-2.2) - Radiology Data Radiology results reviewed: Yes I reviewed the patient's radiology results. Patient's chest x-ray was interpreted by the radiologist and reviewed by me as negative for pneumonia. Results discussed with patient. No evidence of congestive heart failure. - EKG Data EKG attestation: Yes I reviewed and interpreted this EKG. EKG shows normal: Reports: sinus rhythm Rate: Reports: normal [place]/QRS: Reports: RBBB When compared to previous EKG there are: previous EKG unavailable Interpretation: Reports: no acute changes
[2018-11-27] MEDS ORDERED: Nitroglycerin 0.4 MG TAB.SUBL SL PRN (17:05)
[2018-11-27] MEDS ORDERED: Loratadine 10 MG TABLET PO PRN (17:05)
[2018-11-27] MEDS ORDERED: Ibuprofen 400 MG TABLET PO PRN (17:05)
[2018-11-27] MEDS ORDERED: Naloxone 0.4 MG/ML INJ IVP PRN (17:10)
[2018-11-27] MEDS ORDERED: Ondansetron ODT 4 MG TAB.RAPDIS SL PRN (17:10)
[2018-11-27] MEDS: levoFLOXacin 750 MG/150 ML 750 MG/150 ML BAG IVPB SCH (17:56)
[2018-11-27] MEDS ORDERED: Ipratropium/Albuterol Neb 3 ML ONE (20:30)
[2018-11-27] MEDS: Ipratropium/Albuterol Neb 3 ML IH SCH (20:36)
[2018-11-28] MEDS: Ipratropium/Albuterol Neb 3 ML IH SCH ×4 (04:36→20:46)
[2018-11-28 05:56] LABS: Hematocrit 45.9 % (37.5-50.1); Hemoglobin 15.5 g/dL (12.9-16.9); Immature Granulocytes % 0.3 % (0-4); Lymphocytes # 0.6 K/mcL (0.6-4.6); Lymphocytes % 20.1 %; Mean Corpuscular HGB Conc 33.8 g/dL (31.6-35.5); Mean Corpuscular Hemoglobin 33.6 pg (28.0-33.3); Mean Corpuscular Volume 99.6 fL (83.0-100.0); Mean Platelet Volume 10.8 fL (9.4-12.4); Monocytes # 0.1 K/mcL (0.0-1.3); Neutrophils # 2.3 K/mcL (1.6-8.9); Platelet Count 203 K/mcL (140-400); Red Blood Count 4.61 M/mcL (4.19-5.50); Red Cell Distribution Width 13.2 % (11.5-14.5); Segmented Neutrophils % 76.6 %
[2018-11-28 06:10] LABS: BUN/Creatinine Ratio 23 (6-26); Blood Urea Nitrogen 23 mg/dL (8-23); Calcium 8.9 mg/dL (8.6-10.3); Carbon Dioxide 27 mEq/L (23-29); Chloride 103 mEq/L (98-107); Glucose 142 mg/dL (70-105); Osmolality,Calculated 294 (280-300); Potassium 4.4 mEq/L (3.5-5.1); Sodium 139 mEq/L (136-145); eGFR For African Americans > 60 (> 60); eGFR For Non-African Americans > 60 (> 60)
[2018-11-28 06:23] LABS: Platelet Estimate Normal (Normal)
[2018-11-28] MEDS: Folic Acid 1 MG TABLET PO SCH (07:36)
[2018-11-28] MEDS: MethylPREDNISolone 40 MG/ML VIAL IVP SCH ×4 (07:36→20:45)
[2018-11-28] MEDS ORDERED: Furosemide 20 MG TABLET PO PRN (09:00)
[2018-11-28] MEDS: levoFLOXacin 750 MG/150 ML 750 MG/150 ML BAG IVPB SCH (09:00)
--- NOTE | 2018-11-28 13:24 | Electrocardiograph Report ---
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
[2018-11-28] MEDS ORDERED: Azithromycin 500 MG in D5% in Water 250 ML IVPB ONE (22:00)
[2018-11-29] MEDS: Ipratropium/Albuterol Neb 3 ML IH SCH ×4 (05:31→20:43)
[2018-11-29] MEDS ORDERED: *HR* Methotrexate 2.5 MG TABLET PO SCH (09:00)
[2018-11-29] MEDS: Folic Acid 1 MG TABLET PO SCH (09:53)
[2018-11-29] MEDS: MethylPREDNISolone 40 MG/ML VIAL IVP SCH ×3 (09:53→20:37)
[2018-11-29] MEDS: Azithromycin 500 MG in D5% in Water 250 ML IVPB SCH (09:59)
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
[2018-11-29] MEDS: Ascorbic Acid 500 MG TABLET PO SCH (20:33)
[2018-11-29] MEDS: Chlorhexidine Rinse 15 ML MOUTHWASH MM SCH (20:42)
[2018-11-29] MEDS ORDERED: Lactobacillus 1 EACH CAP.SPRINK PO SCH (21:00)
[2018-11-30] MEDS: Ipratropium/Albuterol Neb 3 ML IH SCH ×2 (04:35→10:01)
[2018-11-30 05:45] LABS: Basophils % 0.1 %; Hemoglobin 14.1 g/dL (12.9-16.9); Immature Granulocytes % 0.7 % (0-4); Immature Reticulocyte % 14.6 % (11.0-38.0); Lymphocytes # 1.3 K/mcL (0.6-4.6); Lymphocytes % 7.9 %; Mean Corpuscular HGB Conc 33.6 g/dL (31.6-35.5); Mean Corpuscular Hemoglobin 33.7 pg (28.0-33.3); Mean Corpuscular Volume 100.2 fL (83.0-100.0); Mean Platelet Volume 10.8 fL (9.4-12.4); Monocytes # 0.4 K/mcL (0.0-1.3); Monocytes % 2.1 %; Neutrophils # 14.9 K/mcL (1.6-8.9); Platelet Count 231 K/mcL (140-400); Red Blood Count 4.19 M/mcL (4.19-5.50); Red Cell Distribution Width 13.7 % (11.5-14.5); Retculocyte # 0.05 M/mcL (0.05-0.10); Reticulocyte % 1.2 % (1.6-2.8); Segmented Neutrophils % 89.2 %; White Blood Count 16.7 K/mcL (4.3-11.1)
[2018-11-30 06:18] LABS: BUN/Creatinine Ratio 35 (6-26); Blood Urea Nitrogen 30 mg/dL (8-23); Calcium 8.8 mg/dL (8.6-10.3); Carbon Dioxide 27 mEq/L (23-29); Chloride 109 mEq/L (98-107); Glucose 147 mg/dL (70-105); Osmolality,Calculated 301 (280-300); Sodium 141 mEq/L (136-145); eGFR For African Americans > 60 (> 60); eGFR For Non-African Americans > 60 (> 60)
[2018-11-30] MEDS: Chlorhexidine Rinse 15 ML MOUTHWASH MM SCH (08:19)
[2018-11-30] MEDS: Azithromycin 500 MG in D5% in Water 250 ML IVPB SCH (08:20)
[2018-11-30] MEDS: Folic Acid 1 MG TABLET PO SCH (08:20)
[2018-11-30] MEDS: Ascorbic Acid 500 MG TABLET PO SCH (08:20)
[2018-11-30] MEDS: MethylPREDNISolone 40 MG/ML VIAL IVP SCH (08:20)
--- NOTE | 2018-11-30 09:43 | Internal Med Progress Note ---
Date of Encounter: 11/30/18 Time of Encounter: 09:43 - Constitutional Vitals: Temp Pulse Resp BP Pulse Ox 97.4 F L 78 18 110/67 94 11/30/18 07:15 11/30/18 07:15 11/30/18 07:15 11/30/18 07:15 11/30/18 07:15 Internal Medicine: Result - Labs CBC & Chem 7: 11/30/18 05:15 11/30/18 05:15 Labs: Short CBC 11/30/18 Range/Units 05:15 WBC 16.7 H D (4.3-11.1) K/mcL Hgb 14.1 (12.9-16.9) g/dL Hct 42.0 (37.5-50.1) % Plt Count 231 (140-400) K/mcL Neutrophils # 14.9 H (1.6-8.9) K/mcL BMP 11/30/18 05:15 Sodium 141 Potassium 4.0 Chloride 109 H Carbon Dioxide 27 BUN 30 H Creatinine 0.86 Glucose 147 H Calcium 8.8 - ABG Interpretation ABG results: ABG ABG pH 7.40 pH Units (7.32-7.45) 11/27/18 14:06 ABG pCO2 37 mmHg (35-45) 11/27/18 14:06 ABG pO2 111 mmHg (85-104) H 11/27/18 14:06 ABG O2 Saturation 98 % (95-98) 11/27/18 14:06 PT/INR, D-dimer PT 12.8 Seconds (9.4-12.1) H 11/27/18 14:29 - Impressions Impressions Sinuses CT 11/30/18 08:00 IMPRESSION: Mild multifocal paranasal sinus mucosal disease. D/ / Sandro Stewart MD / Sandro Stewart MD Interpreting Provider: Sandro Stewart MD Consult Discharge Plan - Plan Referrals: Alin Duque [Primary Care Provider] -
[2018-11-30] MEDS ORDERED: predniSONE 20 MG TABLET PO SCH (10:15)
--- NOTE | 2018-11-30 10:22 | Discharge Summary ---
Orders not resulted at time of discharge: Pending orders 11/27/18 14:29 Culture,Blood [BC] Stat 11/28/18 19:09 Culture,Sputum with Gram Stain [RM] Routine 11/30/18 05:15 Folate AM 0400 Vitamin B12 AM 0400 Date of Encounter: 11/30/18 Time of Encounter: 10:17 - Discharge Diagnosis (1) Acute exacerbation of chronic obstructive airways disease Priority: Primary Status: Acute (2) Generalized anxiety disorder Priority: Secondary Status: Acute Comments: Patient begun on BuSpar and Cymbalta. (3) Essential hypertension Priority: Secondary Status: Chronic Hospital course: Mr. Denis is a 63 year old male who was admitted with shortness of breath. The ER physician felt to go home but the patient was concerned about his dyspnea and state. He was treated as a COPD exacerbation with questionable pneumonia although no x-ray evidence of pneumonia was found. He had nasal problems and a CT scan of the nose was performed which showed no acute change, mild mucosal disease. The patient had been treated with 21 days worth of Levaquin so was begun on IV Zithromax. He also received IV methylprednisolone. The patient improved symptomatically. He feels like he is ready to go home. His oxygen is in the high 90s on room air. He will be switched to oral prednisone for a burst of 5 days. He will receive oral Zithromax for another 3 days. He has been instructed to follow up with his primary care provider within the week. Of note, because of depression and anxiety symptoms, he was begun on BuSpar and Cymbalta. Follow-up with primary care provider regarding same. Patient has no complaint of chest discomfort, dyspnea, orthopnea, palpitations, nausea or vomiting, constipation or diarrhea, other changes in bowel habits, difficulty with urination, rash or itching, or other new complaints, except as mentioned above. Review of systems is otherwise negative. I discussed management of patient's care with nursing staff. Discharge discussed with: patient - Time Spent with Patient Total time spent providing and/or coordinating discharge services: - Discharge Medications Prescriptions: New Azithromycin 250 mg PO DAILY #3 tablet No Action Nitroglycerin 0.4 mg SL Q5MIN PRN #20 tab.subl PRN Reason: Chest Pain Loratadine [Claritin] 10 mg PO DAILY PRN PRN Reason: Allergy Symptoms Ipratropium/Albuterol Neb [Duoneb] 3 ml IH QID PRN PRN Reason: Shortness Of Breath/Wheezing Ibuprofen 400 mg PO Q8H PRN PRN Reason: Pain Fluticasone Propionate Nasal [Flonase] 50 mcg NS DAILY PRN PRN Reason: Allergy Symptoms Metoprolol [Lopressor] 12.5 mg PO BID #60 tablet Albuterol Sulfate [Albuterol Inhaler] 1 - 2 puff IH Q6H PRN PRN Reason: Shortness Of Breath Methotrexate [Otrexup] 15 mg PO QWEEK #0 Losartan Potassium [Cozaar] 50 mg PO DAILY Ipratropium/Albuterol Sulfate [Combivent Respimat Inhal Evarts] 1 puff IH QID Folic Acid 1 mg PO DAILY Pravastatin Sodium [Pravachol] 40 mg PO QPM Furosemide [Lasix] 20 mg PO PRN PRN PRN Reason: fluid Levofloxacin [Levaquin] 750 mg PO DAILY Home Medications: Ipratropium/Albuterol Sulfate [Combivent Respimat Inhal Evarts] 1 puff IH QID 07/23/15 [History] Losartan Potassium [Cozaar] 50 mg PO DAILY 07/23/15 [History] Nitroglycerin 0.4 mg SL Q5MIN PRN #20 tab.subl 07/25/15 [Rx] Folic Acid 1 mg PO DAILY 01/20/17 [History] Pravastatin Sodium [Pravachol] 40 mg PO QPM 01/20/17 [History] Fluticasone Propionate Nasal [Flonase] 50 mcg NS DAILY PRN 03/11/17 [History] Ibuprofen 400 mg PO Q8H PRN 03/11/17 [History] Ipratropium/Albuterol Neb [Duoneb] 3 ml IH QID PRN 03/11/17 [History] Loratadine [Claritin] 10 mg PO DAILY PRN 03/11/17 [History] Metoprolol [Lopressor] 12.5 mg PO BID #60 tablet 03/30/17 [Rx] Albuterol Sulfate [Albuterol Inhaler] 1 - 2 puff IH Q6H PRN 05/18/17 [History] Methotrexate [Otrexup] 15 mg PO QWEEK #0 05/20/17 [Rx] Furosemide [Lasix] 20 mg PO PRN PRN 11/27/18 [History] Levofloxacin [Levaquin] 750 mg PO DAILY 11/27/18 [History] Azithromycin 250 mg PO DAILY #3 tablet 11/30/18 [Rx] Allergies/Adverse Reactions: Allergy/AdvReac Type Severity Reaction Status Date / Time salmeterol Allergy Swelling Verified 07/21/17 05:57 of Lip/Tongue/Throat Sulfa (Sulfonamide Allergy Swelling Verified 07/21/17 05:57 Antibiotics) of Lip/Tongue/Throat Date of admission: 11/27/18 17:22 Primary care physician: Alin Duque Discharging clinician: Jason Sims Anticipated date of discharge: 11/30/18 - Constitutional Vitals: Temp Pulse Resp BP Pulse Ox 97.4 F L 78 18 110/67 95 11/30/18 07:15 11/30/18 07:15 11/30/18 10:01 11/30/18 07:15 11/30/18 10:01 Exam: Examination: (Except as mentioned above): General: In no apparent distress. Alert and oriented 3. Nondiaphoretic. Head: Atraumatic and normocephalic. Respiratory: No use of accessory muscles. Lungs are clear throughout. Airflow is diminished but no wheezes, rales, or rhonchi. Cardiovascular: Regular rate and rhythm without murmur appreciated. Abdomen: Bowel sounds are normal. No hepatosplenomegaly mass or tenderness a ppreciated. Morbidly obese and therefore difficult to palpate deeply. Extremities: No cyanosis clubbing or edema. Skin: Warm and non-diaphoretic with no new lesions noted. - Patient Status Disposition: Home, Self-Care Condition: Fair Functional capacity at discharge: independent ambulation Overall status at discharge: patient is progressing back to baseline - Discharge Instructions Follow Up With: Alin Duque [Primary Care Provider] - - Diet and Activity Activity: wear oxygen at night Diet: advance to your usual diet
[2018-11-30 11:24] VITALS: BP 120/71
[2018-11-30 14:12] LABS: Folate 13.7 ng/mL (3.0-16.0)
== END 2018-11-30 11:54 | disposition home or self-care (01) ==
LOC: INPGRE 13:08 → EMEROOGRE 13:08 → INPGRE 17:39
PROVIDERS: ADMIT Internal Medicine; ATTEND Internal Medicine

== ENCOUNTER 2019-07-11 15:42 | Inpatient (IN) ==
[2019-07-11] MEDS ORDERED: Levalbuterol Neb 1.25 MG/3 ML IH ONE (16:15)
[2019-07-11] MEDS ORDERED: methylPREDNISolone 125 MG/2 ML VIAL IVP STA (16:19)
[2019-07-11] MEDS ORDERED: methylPREDNISolone 125 MG/2 ML VIAL IM STA (16:19)
[2019-07-11 16:39] LABS: Basophils % 0.6 %; Eosinophils # 0.1 K/mcL (0.0-0.6); Eosinophils % 1.1 %; Hematocrit 44.9 % (37.5-50.1); Hemoglobin 14.9 g/dL (12.9-16.9); Immature Granulocytes % 0.6 % (0-4); Lymphocytes # 1.1 K/mcL (0.6-4.6); Lymphocytes % 15.1 %; Mean Corpuscular HGB Conc 33.2 g/dL (31.6-35.5); Mean Corpuscular Hemoglobin 33.5 pg (28.0-33.3); Mean Corpuscular Volume 100.9 fL (83.0-100.0); Mean Platelet Volume 11.3 fL (9.4-12.4); Monocytes # 0.8 K/mcL (0.0-1.3); Monocytes % 11.5 %; Neutrophils # 5.1 K/mcL (1.6-8.9); Platelet Count 239 K/mcL (140-400); Red Blood Count 4.45 M/mcL (4.19-5.50); Red Cell Distribution Width 13.4 % (11.5-14.5); Segmented Neutrophils % 71.1 %; White Blood Count 7.2 K/mcL (4.3-11.1)
[2019-07-11 16:59] LABS: BUN/Creatinine Ratio 22 (6-26); Blood Urea Nitrogen 22 mg/dL (8-23); Calcium 9.3 mg/dL (8.6-10.3); Carbon Dioxide 25 mEq/L (23-29); Chloride 103 mEq/L (98-107); Glucose 115 mg/dL (70-105); Osmolality,Calculated 288 (280-300); Potassium 4.5 mEq/L (3.5-5.1); Sodium 137 mEq/L (136-145); eGFR For African Americans > 60 (> 60); eGFR For Non-African Americans > 60 (> 60)
[2019-07-11] MEDS ORDERED: Naloxone 0.4 MG/ML INJ IVP PRN ×2 (18:10→19:35)
[2019-07-11] MEDS ORDERED: Ipratropium/Albuterol Neb 3 ML IH SCH (18:15)
[2019-07-11] MEDS ORDERED: Nitroglycerin 0.4 MG TAB.SUBL SL PRN (19:35)
[2019-07-11] MEDS ORDERED: NON-FORMULARY MEDICATION 1 EACH EACH (Ipratropium/Albuterol Sulfate [Combivent Respimat In IH SCH (21:00)
[2019-07-11] MEDS ORDERED: Ipratropium/Albuterol Neb 3 ML ONE (21:13)
[2019-07-11] MEDS: Ipratropium/Albuterol Neb 3 ML IH SCH (21:30)
[2019-07-11] MEDS ORDERED: Fluticasone Propionate Nasal 50 MCG/SPRAY BOTTLE NS PRN (21:47)
[2019-07-12] MEDS ORDERED: MethylPREDNISolone 40 MG/ML VIAL IVP SCH
[2019-07-12] MEDS: MethylPREDNISolone 40 MG/ML VIAL IVP SCH ×4 (00:07→17:33)
[2019-07-12] MEDS ORDERED: Ipratropium/Albuterol Neb 3 ML ONE ×2 (00:38→04:19)
[2019-07-12] MEDS: Ipratropium/Albuterol Neb 3 ML IH SCH ×7 (00:40→20:35)
[2019-07-12] MEDS ORDERED: Acetaminophen 325 MG TABLET PO PRN (03:49)
[2019-07-12] MEDS: *HR* OxyCODONE/APAP 5/325 TABLET PO PRN ×2 (08:28→16:01)
[2019-07-12] MEDS: levoFLOXacin 750 MG/150 ML 750 MG/150 ML BAG IVPB SCH (08:29)
[2019-07-12] MEDS: Folic Acid 1 MG TABLET PO SCH (08:29)
[2019-07-12] MEDS: Aspirin Enteric Coated 81 MG Tablet PO SCH (08:29)
[2019-07-12] MEDS ORDERED: levoFLOXacin 750 MG/150 ML 750 MG/150 ML BAG IVPB SCH (09:00)
[2019-07-12] MEDS ORDERED: 0.9 % Sodium Chloride 1,000 ML IVC SCH (11:15)
[2019-07-12 16:34] LABS: Bilirubin,Urine Small (Negative); Blood,Urine Negative (Negative); Clarity,Urine Clear (Clear); Color,Urine Yellow (Yellow); Glucose,Urine (UA) Normal (Normal); Ketones,Urine Negative (Negative); Leukocyte Esterase,Urine Negative (Negative); Nitrite,Urine Negative (Negative); Protein,Urine 100 mg/dL (Neg-Trace); Specific Gravity,Urine >= 1.030 (1.010-1.025); Urobilinogen,Urine Normal (Normal)
[2019-07-12 16:41] LABS: Squamous Epithelial Cell,Urine Many per lpf (None-Few)
[2019-07-12 16:42] LABS: Mucus,Urine Few per lpf (Few); WBC,Urine 0-3 per hpf (0-3); Yeast,Urine Few per hpf (None Seen)
[2019-07-12 16:44] LABS: Bacteria,Urine Moderate per hpf (None-Few)
[2019-07-12] MEDS: Fluconazole 100 MG TABLET PO SCH (17:33)
[2019-07-13] MEDS: Ipratropium/Albuterol Neb 3 ML IH SCH ×6 (00:32→20:07)
[2019-07-13] MEDS: MethylPREDNISolone 40 MG/ML VIAL IVP SCH ×4 (00:33→17:25)
[2019-07-13 05:52] LABS: Hematocrit 41.4 % (37.5-50.1); Hemoglobin 13.7 g/dL (12.9-16.9); Mean Corpuscular HGB Conc 33.1 g/dL (31.6-35.5); Mean Corpuscular Hemoglobin 33.7 pg (28.0-33.3); Mean Corpuscular Volume 101.7 fL (83.0-100.0); Platelet Count 272 K/mcL (140-400); Red Blood Count 4.07 M/mcL (4.19-5.50); Red Cell Distribution Width 13.5 % (11.5-14.5); White Blood Count 22.5 K/mcL (4.3-11.1)
[2019-07-13 06:09] LABS: Alanine Aminotransferase 21 Units/L (7-52); Albumin 3.5 g/dL (3.5-5.7); Albumin/Globulin Ratio 1.4 (1.1-2.2); Alkaline Phosphatase 114 Units/L (34-104); Aspartate Amino Transferase 21 Units/L (13-39); BUN/Creatinine Ratio 30 (6-26); Bilirubin,Total 0.3 mg/dL (0.3-1.0); Blood Urea Nitrogen 32 mg/dL (8-23); Calcium 9.3 mg/dL (8.6-10.3); Carbon Dioxide 26 mEq/L (23-29); Chloride 106 mEq/L (98-107); Globulin 2.5 g/dL (2.4-3.5); Glucose 164 mg/dL (70-105); Magnesium 2.5 mg/dL (1.6-2.6); Osmolality,Calculated 299 (280-300); Potassium 4.2 mEq/L (3.5-5.1); Sodium 139 mEq/L (136-145); eGFR For African Americans > 60 (> 60); eGFR For Non-African Americans > 60 (> 60)
[2019-07-13] MEDS: Fluconazole 100 MG TABLET PO SCH (09:27)
[2019-07-13] MEDS: Aspirin Enteric Coated 81 MG Tablet PO SCH (09:27)
[2019-07-13] MEDS: Folic Acid 1 MG TABLET PO SCH (09:27)
[2019-07-13] MEDS: levoFLOXacin 750 MG/150 ML 750 MG/150 ML BAG IVPB SCH (09:28)
[2019-07-13] MEDS: *HR* OxyCODONE/APAP 5/325 TABLET PO PRN ×2 (09:38→20:07)
[2019-07-13] MEDS ORDERED: Methyl Salicylate/Menthol 28 GM TUBE TP PRN (14:01)
[2019-07-13] MEDS ORDERED: Methyl Salicylate/Menthol 57 APPL/57 GM TUBE TP PRN (14:15)
[2019-07-14] MEDS: Ipratropium/Albuterol Neb 3 ML IH SCH ×7 (01:35→23:45)
[2019-07-14] MEDS: MethylPREDNISolone 40 MG/ML VIAL IVP SCH ×3 (01:35→18:01)
[2019-07-14] MEDS: levoFLOXacin 750 MG/150 ML 750 MG/150 ML BAG IVPB SCH (08:11)
[2019-07-14] MEDS: *HR* OxyCODONE/APAP 5/325 TABLET PO PRN ×2 (08:11→22:10)
[2019-07-14] MEDS: Fluconazole 100 MG TABLET PO SCH (08:12)
[2019-07-14] MEDS: Folic Acid 1 MG TABLET PO SCH (08:12)
[2019-07-14] MEDS: Aspirin Enteric Coated 81 MG Tablet PO SCH (08:12)
[2019-07-14] MEDS ORDERED: Furosemide 20 MG TABLET PO ONE (09:00)
[2019-07-15] MEDS: Ipratropium/Albuterol Neb 3 ML IH SCH ×4 (04:07→17:00)
[2019-07-15] MEDS: MethylPREDNISolone 40 MG/ML VIAL IVP SCH (05:20)
[2019-07-15 06:14] LABS: Basophils % 0.3 %; Hematocrit 39.1 % (37.5-50.1); Hemoglobin 13.3 g/dL (12.9-16.9); Immature Granulocytes % 1.4 % (0-4); Lymphocytes # 0.8 K/mcL (0.6-4.6); Lymphocytes % 5.3 %; Mean Platelet Volume 10.8 fL (9.4-12.4); Monocytes # 0.6 K/mcL (0.0-1.3); Neutrophils # 13.7 K/mcL (1.6-8.9); Platelet Count 307 K/mcL (140-400); Red Blood Count 3.91 M/mcL (4.19-5.50); Red Cell Distribution Width 13.5 % (11.5-14.5); White Blood Count 15.4 K/mcL (4.3-11.1)
[2019-07-15 06:15] LABS: Basophils # 0.1 K/mcL (0.0-0.2)
[2019-07-15 06:37] LABS: BUN/Creatinine Ratio 41 (6-26); Blood Urea Nitrogen 39 mg/dL (8-23); Carbon Dioxide 27 mEq/L (23-29); Chloride 105 mEq/L (98-107); Glucose 153 mg/dL (70-105); Osmolality,Calculated 296 (280-300); Potassium 4.1 mEq/L (3.5-5.1); Sodium 137 mEq/L (136-145); eGFR For African Americans > 60 (> 60); eGFR For Non-African Americans > 60 (> 60)
[2019-07-15] MEDS ORDERED: levoFLOXacin 750 MG TABLET PO SCH (09:00)
[2019-07-15] MEDS: Aspirin Enteric Coated 81 MG Tablet PO SCH (09:39)
[2019-07-15] MEDS: Fluconazole 100 MG TABLET PO SCH (09:39)
[2019-07-15] MEDS: Folic Acid 1 MG TABLET PO SCH (09:39)
[2019-07-15 10:42] VITALS: BP 136/78
== END 2019-07-15 17:20 | disposition other institution (70) | DRG 192 ==
LOC: EMEROOGRE 15:42 → INPGRE 18:24
PROVIDERS: ADMIT Family Medicine; ATTEND Family Medicine